=== PATIENT | male | born 1960 | race American Indian/Alaskan Native ===

== ENCOUNTER 2021-04-02 18:24 | Inpatient (IN) | payer OTHER ==
[2021-04-02] MEDS ORDERED: SODIUM CHLORIDE 0.9% 1000 ML 1,000 ML IV ONE (19:29)
[2021-04-02] MEDS ORDERED: dilTIAZem 25 MG/5 ML INJ IV ONE (19:29)
[2021-04-02] MEDS ORDERED: ASPIRIN 81 MG TAB CHEW PO ONE (19:29)
--- NOTE | 2021-04-02 19:52 | XRay Report ---
CHEST 1 VIEW 04/02/2021 6:45 PM INDICATION / CLINICAL INFORMATION: dyspnea. COMPARISON: None available. FINDINGS: SUPPORT DEVICES: None. HEART / MEDIASTINUM: No significant abnormality. LUNGS / PLEURA: No significant pulmonary or pleural abnormality. No pneumothorax. ADDITIONAL FINDINGS: No significant additional findings. IMPRESSION: 1. No acute findings. Signer Name: Sloan Stone MD Signed: 04/02/2021 7:48 PM Workstation Name: [id number]
[2021-04-02 20:01] LABS: Basophils % (Auto) 0.8 % (0.0-1.8); Eosinophils # (Auto) 0.1 K/mm3 (0.0-0.4); Eosinophils % (Auto) 1.4 % (0.0-4.3); Hematocrit 46.3 % (35.5-45.6); Hemoglobin 15.8 gm/dl (11.8-15.2); Lymphocytes # (Auto) 1.5 K/mm3 (1.2-5.4); Mean Corpuscular HGB Conc 34 % (32-34); Mean Corpuscular Volume 95 fl (84-94); Monocytes # (Auto) 0.6 K/mm3 (0.0-0.8); Monocytes % (Auto) 10.8 % (0.0-7.3); Platelet Count 253 K/mm3 (140-440); Red Blood Count 4.88 M/mm3 (3.65-5.03); Red Cell Distribution Width 14.7 % (13.2-15.2)
--- NOTE | 2021-04-02 20:05 | Emergency Department Report ---
ED Palpitations HPI - General Chief Complaint: Arrhythmia/Palpitations Stated Complaint: HEART FLUTTER Time Seen by Provider: 04/02/21 19:23 Source: patient Mode of arrival: Ambulatory Limitations: No Limitations - History of Present Illness Initial Comments: Patient is a 61-year-old F [place]inamese male with a past medical history hypertension who is presenting with palpitations. Patient states for approximately a week he has been having off and on heart palpitations or shortness of breath. States he initially thought that he was having a cold as he had a mild cough shortness of breath with exertion and when he lies flat. Patient travel to [place] during the week for his birthday and was continued to having symptoms so he went to the hospital and was told that he had atrial flutter. Patient was told that they wanted to admit him to the hospital however he elected to come back home to [place] and be evaluated here. Patient was placed on diltiazem 125 mg. Took 3 doses total the last of which was this morning. Patient is states this afternoon is continued to have fluttering in the chest. States no chest heaviness at this time. - Related Data Previous Rx's Medication Instructions Recorded Last Taken Type Ibuprofen [Motrin] 800 mg PO Q8HR PRN #20 tablet 06/21/16 Unknown Rx Allergies Allergy/AdvReac Type Severity Reaction Status Date / Time No Known Allergies Allergy Verified 04/02/21 18:26 ED Review of Systems ROS: Stated complaint: HEART FLUTTER Other details as noted in HPI Comment: All other systems reviewed and negative ED Past Medical Hx - Past Medical History Hx Hypertension: Yes (no meds) Additional medical history: A TRIAL FIB - Surgical History Past Surgical History?: No - Social History Smoking Status: Current Some Day Smoker Substance Use Type: Alcohol - Medications Home Medications: Home Medications Medication Instructions Recorded Confirmed Last Taken Type Ibuprofen [Motrin] 800 mg PO Q8HR PRN #20 tablet 06/21/16 Unknown Rx ED Physical Exam - General Limitations: No Limitations General appearance: alert, in no apparent distress - Head Head exam: Present: atraumatic, normocephalic - Eye Eye exam: Present: normal appearance, PERRL, EOMI - ENT ENT exam: Present: mucous membranes moist - Neck Neck exam: Present: normal inspection - Respiratory Respiratory exam: Present: normal lung sounds bilaterally. Absent: respiratory distress, wheezes, rales, rhonchi - Cardiovascular Cardiovascular Exam: Present: tachycardia, irregular rhythm. Absent: systolic murmur, diastolic murmur, rubs, gallop - GI/Abdominal GI/Abdominal exam: Present: soft, normal bowel sounds. Absent: distended, tenderness, guarding, rebound - Rectal Rectal exam: Present: deferred - Extremities Exam Extremities exam: Present: normal inspection, pedal edema - Back Exam Back exam: Present: normal inspection - Neurological Exam Neurological exam: Present: alert, oriented X3 - Psychiatric Psychiatric exam: Present: normal affect, normal mood - Skin Skin exam: Present: warm, dry, intact, normal color. Absent: rash ED Course Vital Signs 04/02/21 04/02/21 18:31 19:45 Temperature 98.4 F Pulse Rate 162 H Respiratory 20 18 Rate Blood Pressure 151/113 O2 Sat by Pulse 95 Oximetry ED Medical Decision Making - Lab Data Result diagrams: 04/02/21 19:44 04/02/21 19:44 Lab Results 04/02/21 04/02/21 04/02/21 Range/Units 19:44 19:44 19:44 WBC 5.2 (4.5-11.0) K/mm3 RBC 4.88 (3.65-5.03) M/mm3 Hgb 15.8 H (11.8-15.2) gm/dl Hct 46.3 H (35.5-45.6) % MCV 95 H (84-94) fl MCH 32 (28-32) pg MCHC 34 (32-34) % RDW 14.7 (13.2-15.2) % Plt Count 253 (140-440) K/mm3 Lymph % (Auto) 29.0 (13.4-35.0) % [place] % (Auto) 10.8 H (0.0-7.3) % Eos % (Auto) 1.4 (0.0-4.3) % Baso % (Auto) 0.8 (0.0-1.8) % Lymph # (Auto) 1.5 (1.2-5.4) K/mm3 [place] # (Auto) 0.6 (0.0-0.8) K/mm3 Eos # (Auto) 0.1 (0.0-0.4) K/mm3 Baso # (Auto) 0.0 (0.0-0.1) K/mm3 Seg Neutrophils % 58.0 (40.0-70.0) % Seg Neutrophils # 3.0 (1.8-7.7) K/mm3 APTT 25.2 (24.2-36.6) Sec. D-Dimer 380.81 H (0-234) ng/mlDDU Sodium 141 (137-145) mmol/L Potassium 4.1 (3.6-5.0) mmol/L Chloride 104.6 (98-107) mmol/L Carbon Dioxide 21 L (22-30) mmol/L Anion Gap 20 mmol/L BUN 21 H (9-20) mg/dL Creatinine 0.9 (0.8-1.3) mg/dL Estimated GFR > 60 ml/min BUN/Creatinine Ratio 23 % Glucose 87 (75-100) mg/dL Calcium 9.8 (8.4-10.2) mg/dL Magnesium 1.90 (1.7-2.3) mg/dL Troponin T 0.066 H (0.00-0.029) ng/mL NT-Pro-B Natriuret Pep (0-900) pg/mL Triglycerides 143 (2-149) mg/dL Cholesterol 221 H (50-199) mg/dL LDL Cholesterol Direct 136 H (50-130) mg/dL HDL Cholesterol 65 H (40-59) mg/dL Cholesterol/HDL Ratio 3.40 % TSH (0.270-4.200) mlU/mL 04/02/21 04/02/21 Range/Units 19:44 19:44 WBC (4.5-11.0) K/mm3 RBC (3.65-5.03) M/mm3 Hgb (11.8-15.2) gm/dl Hct (35.5-45.6) % MCV (84-94) fl MCH (28-32) pg MCHC (32-34) % RDW (13.2-15.2) % Plt Count (140-440) K/mm3 Lymph % (Auto) (13.4-35.0) % Miller % (Auto) (0.0-7.3) % Eos % (Auto) (0.0-4.3) % Baso % (Auto) (0.0-1.8) % Lymph # (Auto) (1.2-5.4) K/mm3 Miller # (Auto) (0.0-0.8) K/mm3 Eos # (Auto) (0.0-0.4) K/mm3 Baso # (Auto) (0.0-0.1) K/mm3 Seg Neutrophils % (40.0-70.0) % Seg Neutrophils # (1.8-7.7) K/mm3 APTT (24.2-36.6) Sec. D-Dimer (0-234) ng/mlDDU Sodium (137-145) mmol/L Potassium (3.6-5.0) mmol/L Chloride (98-107) mmol/L Carbon Dioxide (22-30) mmol/L Anion Gap mmol/L BUN (9-20) mg/dL Creatinine (0.8-1.3) mg/dL Estimated GFR ml/min BUN/Creatinine Ratio % Glucose (75-100) mg/dL Calcium (8.4-10.2) mg/dL Magnesium (1.7-2.3) mg/dL Troponin T (0.00-0.029) ng/mL NT-Pro-B Natriuret Pep 175.7 (0-900) pg/mL Triglycerides (2-149) mg/dL Cholesterol (50-199) mg/dL LDL Cholesterol Direct (50-130) mg/dL HDL Cholesterol (40-59) mg/dL Cholesterol/HDL Ratio % TSH 2.310 (0.270-4.200) mlU/mL - EKG Data -: EKG Interpreted by Me - EKG Data 04/02/21 21:49 EKG shows atrial flutter with a rate of 103. LVH present. Possible ST elevation in lead III secondary to his rate. Intervals show a prolonged QT. [place] is normal the flutter pattern is variable and the rate is irregularly irregular - Radiology Data [facility] [address] [place] [address] XRay Report Signed Patient: SAM REDMAN MR#: [id number] : 1960 Acct:[id number] Age/Sex: 61 / M ADM Date: 04/02/21 Loc: ED Attending Dr: Ordering Physician: CANDIDO JOHNSON MD Date of Service: 04/02/21 Procedure(s): XR chest 1V ap Accession Number(s): [id number] cc: CANDIDO JOHNSON MD Fluoro Time In Minutes: CHEST 1 VIEW 04/02/2021 6:45 PM INDICATION / CLINICAL INFORMATION: dyspnea. COMPARISON: None available. FINDINGS: SUPPORT DEVICES: None. HEART / MEDIASTINUM: No significant abnormality. LUNGS / PLEURA: No significant pulmonary or pleural abnormality. No pneumothorax. ADDITIONAL FINDINGS: No significant additional findings. IMPRESSION: 1. No acute findings. Signer Name: Sloan Stone MD Signed: 04/02/2021 7:48 PM Workstation Name: [employer] CTA CHEST WITH IV CONTRAST INDICATION: elevated ddimer, sob, 100ml of OMNI 350 given. TECHNIQUE: Axial CT images were obtained through the chest after injection of 100 cc IV contrast. 3 plane MIP reconstructions were produced. All CT scans at this location are performed using CT dose reduction for ALARA by means of automated exposure control. COMPARISON: None available. FINDINGS: PULMONARY ARTERIES: No pulmonary emboli. THORACIC AORTA: No acute abnormality. HEART: Moderate cardiomegaly. CORONARY ARTERIES: No significant calcification. PLEURA: No pleural effusion. No pneumothorax. LYMPH NODES: No significant adenopathy. LUNGS: Moderate interstitial and dependent pulmonary edema ADDITIONAL FINDINGS: None. UPPER ABDOMEN: No acute findings. SKELETAL STRUCTURES: No significant osseous abnormality. IMPRESSION: 1. No CT evidence for pulmonary embolism. 2. Congestive heart failure. Signer Name: Sloan Stone MD Signed: 04/02/2021 9:25 PM Workstation Name: [email or web address] - Medical Decision Making Patient is a 61-year-old F [place] male who states he is been feeling poorly for approximately a week. Initially thought he had a cold as he states this time a year he often times does get a very minor cold-like illness. Patient was noted to be in atrial flutter several days ago and started on diltiazem but patient did not want to be admitted at that time since he was out of town. Patient was given 20 of diltiazem on arrival. Heart rate was in the 140s to 160 range during my interaction with the patient. Patient's rate decreased into the 70s and is remained under 100 since being given the diltiazem. Chest x-ray does shows pulmonary vascular congestion per my interpretation. D-dimer slightly elevated and with his recent travel elected to do a CTA of the chest to rule out pulmonary embolus as a possible cause of the patient is going into atrial flutter. No PE was found but the patient does show evidence of some pulmonary vascular congestion and edema. Patient given a dose of Lasix. Patient first troponin is slightly elevated. Patient to be admitted to the [facility] ital[facility] service with cardiology consult. Critical Care Time: Yes (30) Critical care attestation.: If time is entered above; I have spent that time in minutes in the direct care of this critically ill patient, excluding procedure time. ED Disposition Clinical Impression: Atrial fibrillation/flutter, Elevated troponin I level, Pulmonary edema Disposition: OP ADMIT IP TO THIS HOSP Is pt being admited?: Yes Does the pt Need Aspirin: No Condition: Stable Instructions: Pulmonary Edema (ED) Time of Disposition: 21:53
[2021-04-02 20:11] LABS: Partial Thromboplastin Time 25.2 Sec. (24.2-36.6)
[2021-04-02 20:16] LABS: BUN/Creatinine Ratio 23; Blood Urea Nitrogen 21 mg/dL (9-20); Calcium 9.8 mg/dL (8.4-10.2); Hemolysis Index 24
[2021-04-02 20:41] LABS: HDL Cholesterol 65 mg/dL (40-59); LDL Cholesterol,Direct 136 mg/dL (50-130)
--- NOTE | 2021-04-02 21:30 | Cat Scan Report ---
CTA CHEST WITH IV CONTRAST INDICATION: elevated ddimer, sob, 100ml of OMNI 350 given. TECHNIQUE: Axial CT images were obtained through the chest after injection of 100 cc IV contrast. 3 plane MIP re constructions were produced. All CT scans at this location are performed using CT dose reduction for ALARA by means of automated exposure control. COMPARISON: None available. FINDINGS: PULMONARY ARTERIES: No pulmonary emboli. THORACIC AORTA: No acute abnormality. HEART: Moderate cardiomegaly. CORONARY ARTERIES: No significant calcification. PLEURA: No pleural effusion. No pneumothorax. LYMPH NODES: No significant adenopathy. LUNGS: Moderate interstitial and dependent pulmonary edema ADDITIONAL FINDINGS: None. UPPER ABDOMEN: No acute findings. SKELETAL STRUCTURES: No significant osseous abnormality. IMPRESSION: 1. No CT evidence for pulmonary embolism. 2. Congestive heart failure. Signer Name: Sloan Stone MD Signed: 04/02/2021 9:25 PM Workstation Name: [id number]
[2021-04-02] MEDS ORDERED: FUROSEMIDE 40 MG/4 ML INJ IV ONE (21:35)
[2021-04-02] MEDS ORDERED: MORPHINE 4 MG/1 ML INJ IV PRN (22:17)
[2021-04-02] MEDS ORDERED: MAGNESIUM HYDROXIDE (MOM) ORAL LIQD UDC PO PRN (22:17)
[2021-04-02] MEDS ORDERED: ACETAMINOPHEN 325 MG TAB PO PRN (22:17)
[2021-04-02] MEDS ORDERED: MORPHINE 2 MG/1 ML INJ IV PRN (22:17)
[2021-04-02] MEDS ORDERED: traMADol 50 MG TAB PO PRN (22:17)
[2021-04-02] MEDS ORDERED: ONDANSETRON 4 MG/2 ML INJ IV PRN (22:17)
[2021-04-02] MEDS ORDERED: NITROGLYCERIN 0.4 MG TAB SUBL SL PRN ×2 (22:17)
--- NOTE | 2021-04-02 22:39 | History and Physical Report ---
History of Present Illness Date of examination: 04/02/21 Date of admission: 04/02/21 22:03 Chief complaint: Shortness of Breath Palpitation History of present illness: 61-year-old -[place] male with significant past medical history of hypertension presents to the emergency room today complaining of palpitation and shortness of breath which has been ongoing for the past few days. Patient initially had a mild cough and some shortness of breath especially when he lies down flat. He had a recent travel to [place] for his birthday during the week where his sy mptoms continued. He was seen at the hospital in [place] was diagnosed with atrial fibrillation/atrial flutter. He declined admission at that time and opted to return to [place] to be evaluated. He was placed on diltiazem 125 mg which he has been compliant with. However this afternoon patient continued to have palpitations and shortness of breath and decided to check into the emergency room. He denies any chest pain, no headache or dizziness, no diaphoresis, no nausea vomiting and no abdominal pain. Upon arrival in the emergency room patient was found to be in atrial flutterA. fib with a rate of 140 and was given 20 mg of diltiazem with significant rate control. Work-up in the emergency room today, chest x-ray shows no acute findings however CT angiogram showed no evidence of pulmonary embolism but has findings consistent with congestive heart failure. Labs were significant for slightly elevated troponin 0 0.066 then 0.071, elevated D-dimer of 380.8. Lipid profile were also abnormally elevated. Patient is being admitted for new onset A. fib, congestive heart failure and elevated troponin. Past History Past Medical History: atrial fib, hypertension Past Surgical History: No surgical history Social history: smoking (Current daily smoker) Family history: no significant family history Medications and Allergies Allergies Allergy/AdvReac Type Severity Reaction Status Date / Time No Known Allergies Allergy Verified 04/02/21 18:26 Home Medications Medication Instructions Recorded Confirmed Last Taken Type Ibuprofen [Motrin] 800 mg PO Q8HR PRN #20 tablet 06/21/16 Unknown Rx Active Meds: Active Medications Acetaminophen (Acetaminophen 325 Mg Tab) 650 mg PO Q6H PRN PRN Reason: Pain, Mild (1-3) Aspirin (Aspirin Ec 325 Mg Tab) 325 mg PO QDAY NANO Atorvastatin Calcium (Atorvastatin 40 Mg Tab) 40 mg PO QHS NANO Furosemide (Furosemide 40 Mg/4 Ml Inj) 40 mg IV BID@0600,1800 [facility] Magnesium Hydroxide (Magnesium Hydroxide (Mom) Oral Liqd Udc) 30 ml PO Q4H PRN PRN Reason: Constipation Morphine Sulfate (Morphine 2 Mg/1 Ml Inj) 2 mg IV Q5MIN PRN PRN Reason: Chest Pain unrelieved by NTG Morphine Sulfate (Morphine 4 Mg/1 Ml Inj) 2 mg IV Q5MIN PRN PRN Reason: Chest Pain Nitroglycerin (Nitroglycerin 0.4 Mg Tab Subl) 0.4 mg SL .Q5MIN PRN PRN Reason: Chest Pain Nitroglycerin (Nitroglycerin 0.4 Mg Tab Subl) 0.4 mg SL Q5M PRN PRN Reason: Chest Pain Ondansetron HCl (Ondansetron 4 Mg/2 Ml Inj) 4 mg IV Q8H PRN PRN Reason: Nausea And Vomiting Sodium Chloride (Sodium Chloride 0.9% 10 Ml Flush Syringe) 10 ml IV BID NANO Sodium Chloride (Sodium Chloride 0.9% 10 Ml Flush Syringe) 10 ml IV PRN PRN PRN Reason: LINE FLUSH Sodium Chloride (Sodium Chloride 0.9% 10 Ml Flush Syringe) 10 ml IV PRN PRN PRN Reason: LINE FLUSH Tramadol HCl (Tramadol 50 Mg Tab) 50 mg PO Q6H PRN PRN Reason: Pain, Moderate (4-6) Review of Systems Constitutional: no fever, no chills Cardiovascular: palpitations, no chest pain, no syncope Respiratory: shortness of breath Gastrointestinal: no abdominal pain, no nausea, no vomiting, no diarrhea Genitourinary Male: no dysuria, no hematuria, no flank pain, no nocturia Musculoskeletal: no neck pain, no low back pain Integumentary: no rash, no pruritis Neurological: no syncope, no headaches, no confusion Psychiatric: no anxiety, no depression Endocrine: no polyphagia, no polydipsia, no polyuria, no nocturia Exam - Constitutional Vitals: Temp Pulse Resp BP Pulse Ox 98.4 F 69 16 141/80 97 04/02/21 18:31 04/02/21 22:00 04/02/21 20:30 04/02/21 22:00 04/02/21 22:00 General appearance: Present: no acute distress, well-nourished - EENT Eyes: Present: PERRL, EOM intact ENT: hearing intact - Neck Neck: Present: supple, normal ROM - Respiratory Respiratory effort: normal Respiratory: bilateral: CTA - Cardiovascular Rhythm: irregularly irregular Heart Sounds: Present: S1 & S2. Absent: gallop, systolic murmur, diastolic murmur, rub, click - Extremities Extremities: no ischemia, pulses intact, pulses symmetrical, normal temperature, normal color, Full ROM Extremity abnormal: edema (Trace bilateral ankle edema) Peripheral Pulses: within normal limits - Abdominal General gastrointestinal: Present: soft, non-tender, non-distended, normal bowel sounds. Absent: mass - Integumentary Integumentary: Present: clear, warm, dry, normal turgor. Absent: rash - Musculoskeletal Musculoskeletal: strength equal bilaterally - Psychiatric Psychiatric: appropriate mood/affect, intact judgment & insight, memory intact, cooperative - Neurologic Neurologic: CNII-XII intact, no focal deficits, moves all extremities HEART Score - HEART Score Troponin: Troponin T 0.071 ng/mL (0.00-0.029) H 04/02/21 21:40 Results - Labs CBC & Chem 7: 04/02/21 19:44 04/02/21 19:44 Labs: Abnormal lab results 04/02/21 04/02/21 04/02/21 Range/Units 19:44 19:44 19:44 Hgb 15.8 H (11.8-15.2) gm/dl Hct 46.3 H (35.5-45.6) % MCV 95 H (84-94) fl [place] % (Auto) 10.8 H (0.0-7.3) % D-Dimer 380.81 H (0-234) ng/mlDDU Carbon Dioxide 21 L (22-30) mmol/L BUN 21 H (9-20) mg/dL Troponin T 0.066 H (0.00-0.029) ng/mL Cholesterol 221 H (50-199) mg/dL LDL Cholesterol Direct 136 H (50-130) mg/dL HDL Cholesterol 65 H (40-59) mg/dL 04/02/21 Range/Units 21:40 Hgb (11.8-15.2) gm/dl Hct (35.5-45.6) % MCV (84-94) fl [place] % (Auto) (0.0-7.3) % D-Dimer (0-234) ng/mlDDU Carbon Dioxide (22-30) mmol/L BUN (9-20) mg/dL Troponin T 0.071 H (0.00-0.029) ng/mL Cholesterol (50-199) mg/dL LDL Cholesterol Direct (50-130) mg/dL HDL Cholesterol (40-59) mg/dL Assessment and Plan - Patient Problems (1) Atrial fibrillation/flutter Current Visit: Yes Status: Acute Plan to address problem: Patient admitted and placed on telemetry. Rate is currently controlled. He had a dose of IV diltiazem in the emergency room with good response. Meanwhile we will schedule for echocardiogram and request cardiology evaluation. TSH has been within normal limits. (2) Elevated troponin I level Current Visit: Yes Status: Acute Plan to address problem: Patient had denied any chest pain. Possibly related to the new onset A. fib. We will place patient on anticoagulation and await further recommendations from cardiology. (3) Pulmonary edema Current Visit: Yes Status: Acute Plan to address problem: New onset CHF. Will place on diuretics. We will monitor inputs and outputs and also monitor daily weight. We will request echocardiogram. (4) DVT prophylaxis Current Visit: Yes Status: Acute Plan to address problem: Patient currently on anticoagulation. (5) Full code status Current Visit: Yes Status: Acute Plan to address problem: Patient is a full code.
[2021-04-02] MEDS ORDERED: HEPARIN 10,000 UNITS/10 ML VIAL IV ONE (23:24)
[2021-04-02] MEDS ORDERED: HEPARIN 10,000 UNITS/10 ML VIAL IV PRN (23:24)
[2021-04-02] MEDS ORDERED: HEPARIN/ 0.45% NACL DRIP 25,000 UNIT/500 ML BAG IV SCH (23:45)
[2021-04-03 01:17] LABS: BUN/Creatinine Ratio 21; Blood Urea Nitrogen 19 mg/dL (9-20); Calcium 9.2 mg/dL (8.4-10.2); Hemolysis Index 5
[2021-04-03 01:24] LABS: Partial Thromboplastin Time 169.8 Sec. (24.2-36.6)
[2021-04-03 01:28] LABS: Hematocrit 44.5 % (35.5-45.6); Red Blood Count 4.71 M/mm3 (3.65-5.03)
[2021-04-03 01:29] LABS: Basophils % (Auto) 0.8 % (0.0-1.8); Eosinophils # (Auto) 0.1 K/mm3 (0.0-0.4); Eosinophils % (Auto) 2.4 % (0.0-4.3); Lymphocytes # (Auto) 1.6 K/mm3 (1.2-5.4); Lymphocytes % (Auto) 33.6 % (13.4-35.0); Mean Corpuscular HGB Conc 34 % (32-34); Mean Corpuscular Volume 96 fl (84-94); Monocytes # (Auto) 0.4 K/mm3 (0.0-0.8); Monocytes % (Auto) 8.8 % (0.0-7.3); Platelet Count 251 K/mm3 (140-440); Red Cell Distribution Width 14.8 % (13.2-15.2)
[2021-04-03] MEDS ORDERED: FUROSEMIDE 40 MG/4 ML INJ IV SCH (06:00)
[2021-04-03] MEDS ORDERED: REGADENOSON 0.4 MG/5 ML INJ IV ONE (06:49)
[2021-04-03 09:42] LABS: INR 0.9 (0.87-1.13)
[2021-04-03 09:54] LABS: BUN/Creatinine Ratio 18; Blood Urea Nitrogen 16 mg/dL (9-20); Calcium 9.8 mg/dL (8.4-10.2); Hemolysis Index 2
--- NOTE | 2021-04-03 09:57 | Progress Note ---
Assessment and Plan Assessment and plan: 61-year-old -Polish male with significant past medical history of hypertension presents to the emergency room today complaining of palpitation and shortness of breath which has been ongoing for the past few days. The patient was admitted with diagnosis of new onset atrial fibrillation, heart failure exacerbated and elevated troponin. Upon arrival in the emergency room patient was found to be in atrial flutterA. fib with a rate of 140 and was given 20 mg of diltiazem with significant rate control. Work-up in the emergency room today, chest x-ray shows no acute findings however CT angiogram showed no evidence of pulmonary embolism but has findings consistent with congestive heart failure. Labs were significant for slightly elevated troponin 0 0.066 then 0.071, elevated D-dimer of 380.8. Lipid profile were also abnormally elevated. New onset atrial fibrillation. Elevated troponin Pulmonary edema History of gout Chronic back pain Elevated D-dimer. CTA negative 04/03/2021. Follow-up echocardiogram and cardiology consultation. Etiology of pulmonary edema may be related to atrial fibrillation. Ischemic evaluation with stress test per cardiology. Continue to monitor cardiac isoenzymes and follow- up serial EKG. TSH within normal limits and CTA negative for PE. History Interval history: No new issues overnight. No chest pain or shortness of breath. Hospitalist Physical - Constitutional Vitals: Temp Pulse Resp BP Pulse Ox 98.6 F 77 20 127/97 94 04/03/21 08:20 04/03/21 08:20 04/03/21 08:20 04/03/21 08:20 04/03/21 08:20 General appearance: Present: no acute distress, well-nourished - EENT Eyes: Present: PERRL, EOM intact ENT: hearing intact, clear oral mucosa, dentition normal - Neck Neck: Present: supple, normal ROM - Respiratory Respiratory effort: normal Respiratory: bilateral: CTA - Cardiovascular Rhythm: regular Heart Sounds: Present: S1 & S2. Absent: gallop, rub - Extremities Extremities: no ischemia, No edema, Full ROM - Abdominal General gastrointestinal: soft, non-tender, non-distended, normal bowel sounds - Integumentary Integumentary: Present: clear, warm, dry - Neurologic Neurologic: CNII-XII intact, moves all extremities HEART Score - HEART Score Troponin: Troponin T 0.071 ng/mL (0.00-0.029) H 04/02/21 21:40 Results - Labs CBC & Chem 7: 04/03/21 00:51 04/03/21 08:24 Labs: Laboratory Last Values WBC 4.9 K/mm3 (4.5-11.0) 04/03/21 00:51 RBC 4.71 M/mm3 (3.65-5.03) 04/03/21 00:51 Hgb 15.0 gm/dl (11.8-15.2) 04/03/21 00:51 Hct 44.5 % (35.5-45.6) 04/03/21 00:51 MCV 96 fl (84-94) H 04/03/21 00:51 MCH 32 pg (28-32) 04/03/21 00:51 MCHC 34 % (32-34) 04/03/21 00:51 RDW 14.8 % (13.2-15.2) 04/03/21 00:51 Plt Count 251 K/mm3 (140-440) 04/03/21 00:51 Lymph % (Auto) 33.6 % (13.4-35.0) 04/03/21 00:51 [place] % (Auto) 8.8 % (0.0-7.3) H 04/03/21 00:51 Eos % (Auto) 2.4 % (0.0-4.3) 04/03/21 00:51 Baso % (Auto) 0.8 % (0.0-1.8) 04/03/21 00:51 Lymph # (Auto) 1.6 K/mm3 (1.2-5.4) 04/03/21 00:51 [place] # (Auto) 0.4 K/mm3 (0.0-0.8) 04/03/21 00:51 Eos # (Auto) 0.1 K/mm3 (0.0-0.4) 04/03/21 00:51 Baso # (Auto) 0.0 K/mm3 (0.0-0.1) 04/03/21 00:51 Seg Neutrophils % 54.4 % (40.0-70.0) 04/03/21 00:51 Seg Neutrophils # 2.7 K/mm3 (1.8-7.7) 04/03/21 00:51 PT 12.7 Sec. (12.2-14.9) 04/03/21 08:24 INR 0.90 (0.87-1.13) 04/03/21 08:24 APTT 169.8 Sec. (24.2-36.6) H* 04/03/21 00:51 D-Dimer 380.81 ng/mlDDU (0-234) H 04/02/21 19:44 Heparin Anti-Xa Level 0.17 U.I./ml (0.3-0.7) L 04/03/21 08:24 Sodium 138 mmol/L (137-145) 04/03/21 00:51 Potassium 3.7 mmol/L (3.6-5.0) 04/03/21 00:51 Chloride 103.2 mmol/L (98-107) 04/03/21 00:51 Carbon Dioxide 23 mmol/L (22-30) 04/03/21 00:51 Anion Gap 16 mmol/L 04/03/21 00:51 BUN 19 mg/dL (9-20) 04/03/21 00:51 Creatinine 0.9 mg/dL (0.8-1.3) 04/03/21 00:51 Estimated GFR > 60 ml/min 04/03/21 00:51 BUN/Creatinine Ratio 21 % 04/03/21 00:51 Glucose 117 mg/dL (75-100) H 04/03/21 00:51 Calcium 9.2 mg/dL (8.4-10.2) 04/03/21 00:51 Magnesium 1.90 mg/dL (1.7-2.3) 04/02/21 19:44 Troponin T 0.071 ng/mL (0.00-0.029) H 04/02/21 21:40 NT-Pro-B Natriuret Pep 175.7 pg/mL (0-900) 04/02/21 19:44 Triglycerides 143 mg/dL (2-149) 04/02/21 19:44 Cholesterol 221 mg/dL (50-199) H 04/02/21 19:44 LDL Cholesterol Direct 136 mg/dL (50-130) H 04/02/21 19:44 HDL Cholesterol 65 mg/dL (40-59) H 04/02/21 19:44 Cholesterol/HDL Ratio 3.40 % 04/02/21 19:44 TSH 2.310 mlU/mL (0.270-4.200) 04/02/21 19:44 Thomas/IV: Voiding Method Urinal Active Medications - Current Medications Current Medications: Generic Name Dose Route Start Last Admin Trade Name Freq PRN Reason Stop Dose Admin Acetaminophen 650 mg 04/02/21 22:17 Acetaminophen 325 Mg Tab PO Q6H PRN Pain, Mild (1-3) Aspirin 325 mg 04/03/21 10:00 Aspirin Ec 325 Mg Tab PO QDAY [facility] Atorvastatin Calcium 40 mg 04/03/21 22:00 Atorvastatin 40 Mg Tab PO QHS [facility] Furosemide 40 mg 04/03/21 06:00 04/03/21 06:07 Furosemide 40 Mg/4 Ml Inj IV 40 mg BID@0600,1800 [facility] Administration Heparin Sodium (Porcine) 4,400 unit 04/02/21 23:24 Heparin 10,000 Units/10 Ml Vial 40 unit/kg (4400 unit) IV Q6H PRN Anti-Xa Assay < 0.1 units/ml Heparin Sodium/Sodium Chloride 25,000 unit in 500 mls @ 20 mls/hr 04/02/21 23:45 04/03/21 00:25 Heparin/ 0.45% Nacl-25,000 Unit/500 Ml IV 1,000 units/hr TITRATE NANO 20 mls/hr Administration Protocol 1,000 UNITS/HR Magnesium Hydroxide 30 ml 04/02/21 22:17 Magnesium Hydroxide (Mom) Oral Liqd Udc PO Q4H PRN Constipation Morphine Sulfate 2 mg 04/02/21 22:17 Morphine 2 Mg/1 Ml Inj IV Q5MIN PRN Chest Pain unrelieved by NTG Nitroglycerin 0.4 mg 04/02/21 22:17 Nitroglycerin 0.4 Mg Tab Subl SL .Q5MIN PRN Chest Pain Ondansetron HCl 4 mg 04/02/21 22:17 Ondansetron 4 Mg/2 Ml Inj IV Q8H PRN Nausea And Vomiting Sodium Chloride 10 ml 04/03/21 10:00 Sodium Chloride 0.9% 10 Ml Flush Syringe IV BID NANO Sodium Chloride 10 ml 04/02/21 22:17 Sodium Chloride 0.9% 10 Ml Flush Syringe IV PRN PRN LINE FLUSH Tramadol HCl 50 mg 04/02/21 22:17 Tramadol 50 Mg Tab PO Q6H PRN Pain, Moderate (4-6)
[2021-04-03] MEDS ORDERED: ASPIRIN EC 325 MG TAB PO SCH (10:00)
[2021-04-03 10:15] LABS: Hematocrit 47.5 % (35.5-45.6); Hemoglobin 16.1 gm/dl (11.8-15.2); Mean Corpuscular HGB Conc 34 % (32-34); Mean Corpuscular Volume 94 fl (84-94); Platelet Count 251 K/mm3 (140-440); Red Blood Count 5.05 M/mm3 (3.65-5.03); Red Cell Distribution Width 14.5 % (13.2-15.2)
--- NOTE | 2021-04-03 12:06 | Consultation ---
History of Present Illness Consult date: 04/03/21 Consult reason: atrial fibrillation History of present illness: This is a 61-year old male who presents with complaints of palpitations. Patient reports intermittent palpitations for several weeks associated with shortness of breath. Patient traveled to [place] several days ago where he continued to having palpitations. He went to the emergency department and was told that he had atrial fibrillation. He was recommended hospitalization but the patient declined. He elected to travel back home to [place] for evaluation. On discharge, he was given a prescription for Diltiazem and aspirin. An ECG done today shows atrial flutter with 4:1 AV conduction. Rate 78. Chest x- ray is negative. No evidence of pulmonary embolism by CTA scan of the chest. Labs shows a normal serum magnesium and normal TSH at 2.3. Patient gives a history of hypertension but is not taking any medications and does not have a PCP. No prior cardiac workup. Past History Past Medical History: atrial fib, hypertension Past Surgical History: No surgical history Social history: smoking (Current daily smoker) Family history: no significant family history Medications and Allergies Allergies Allergy/AdvReac Type Severity Reaction Status Date / Time No Known Allergies Allergy Verified 04/02/21 18:26 Home Medications Medication Instructions Recorded Confirmed Last Taken Type Ibuprofen [Motrin] 800 mg PO Q8HR PRN #20 tablet 06/21/16 Unknown Rx Active Meds: Active Medications Acetaminophen (Acetaminophen 325 Mg Tab) 650 mg PO Q6H PRN PRN Reason: Pain, Mild (1-3) Aspirin (Aspirin Ec 325 Mg Tab) 325 mg PO QDAY NANO Atorvastatin Calcium (Atorvastatin 40 Mg Tab) 40 mg PO QHS [facility] Furosemide (Furosemide 40 Mg/4 Ml Inj) 40 mg IV BID@0600,1800 [facility] Last Admin: 04/03/21 06:07 Dose: 40 mg Documented by: Heparin Sodium (Porcine) (Heparin 10,000 Units/10 Ml Vial) 4,400 unit 40 unit/kg (4400 unit) IV Q6H PRN PRN Reason: Anti-Xa Assay < 0.1 units/ml Heparin Sodium/Sodium Chloride (Heparin/ 0.45% Nacl-25,000 Unit/500 Ml) 25,000 unit in 500 mls @ 20 mls/hr IV TITRATE NANO; Protocol Last Admin: 04/03/21 00:25 Dose: 1,000 units/hr, 20 mls/hr Documented by: Magnesium Hydroxide (Magnesium Hydroxide (Mom) Oral Liqd Udc) 30 ml PO Q4H PRN PRN Reason: Constipation Morphine Sulfate (Morphine 2 Mg/1 Ml Inj) 2 mg IV Q5MIN PRN PRN Reason: Chest Pain unrelieved by NTG Nitroglycerin (Nitroglycerin 0.4 Mg Tab Subl) 0.4 mg SL .Q5MIN PRN PRN Reason: Chest Pain Ondansetron HCl (Ondansetron 4 Mg/2 Ml Inj) 4 mg IV Q8H PRN PRN Reason: Nausea And Vomiting Sodium Chloride (Sodium Chloride 0.9% 10 Ml Flush Syringe) 10 ml IV BID NANO Sodium Chloride (Sodium Chloride 0.9% 10 Ml Flush Syringe) 10 ml IV PRN PRN PRN Reason: LINE FLUSH Tramadol HCl (Tramadol 50 Mg Tab) 50 mg PO Q6H PRN PRN Reason: Pain, Moderate (4-6) Review of Systems Cardiovascular: palpitations, shortness of breath (intermittent), no chest pain, no edema, no syncope, no lightheadedness Physical Examination Vital Signs Temp Pulse Resp BP Pulse Ox 98.4 F 162 H 20 151/113 95 04/02/21 18:31 04/02/21 18:31 04/02/21 18:31 04/02/21 18:31 04/02/21 18:31 General appearance: no acute distress HEENT: Positive: PERRL Neck: Positive: trachea midline Cardiac: Positive: irregularly irregular Lungs: Positive: Normal Breath Sounds Neuro: Positive: Grossly Intact Extremities: Absent: edema Results 04/03/21 08:24 04/03/21 08:24 Coagulation 04/02/21 04/03/21 04/03/21 Range/Units 19:44 00:51 08:24 PT 13.8 12.7 (12.2-14.9) Sec. INR 1.00 0.90 (0.87-1.13) APTT 25.2 169.8 H* (24.2-36.6) Sec. Lipids 04/02/21 Range/Units 19:44 Triglycerides 143 (2-149) mg/dL Cholesterol 221 H (50-199) mg/dL HDL Cholesterol 65 H (40-59) mg/dL Cholesterol/HDL Ratio 3.40 % CBC 04/02/21 04/03/21 04/03/21 Range/Units 19:44 00:51 08:24 WBC 5.2 4.9 3.7 L (4.5-11.0) K/mm3 RBC 4.88 4.71 5.05 H (3.65-5.03) M/mm3 Hgb 15.8 H 15.0 16.1 H (11.8-15.2) gm/dl Hct 46.3 H 44.5 47.5 H (35.5-45.6) % Plt Count 253 251 251 (140-440) K/mm3 Lymph # (Auto) 1.5 1.6 (1.2-5.4) K/mm3 [place] # (Auto) 0.6 0.4 (0.0-0.8) K/mm3 Eos # (Auto) 0.1 0.1 (0.0-0.4) K/mm3 Baso # (Auto) 0.0 0.0 (0.0-0.1) K/mm3 Comprehensive Metabolic Panel 04/02/21 04/03/21 04/03/21 Range/Units 19:44 00:51 08:24 Sodium 141 138 141 (137-145) mmol/L Potassium 4.1 3.7 4.2 (3.6-5.0) mmol/L Chloride 104.6 103.2 101.5 (98-107) mmol/L Carbon Dioxide 21 L 23 25 (22-30) mmol/L BUN 21 H 19 16 (9-20) mg/dL Creatinine 0.9 0.9 0.9 (0.8-1.3) mg/dL Glucose 87 117 H 89 (75-100) mg/dL Calcium 9.8 9.2 9.8 (8.4-10.2) mg/dL Assessment and Plan - Patient Problems (1) Atrial fibrillation/flutter Current Visit: Yes Status: Acute Plan to address problem: normal TSH at 2.3. no evidence of PE by CTA of chest.
[2021-04-03] MEDS ORDERED: AMIODARONE 300 MG in DEXTROSE 5% IN WATER 100 ML IV ONE (14:30)
[2021-04-03] MEDS: AMIODARONE 200 MG TAB PO SCH (15:13)
[2021-04-03 15:16] LABS: Hematocrit 47.1 % (35.5-45.6); Hemoglobin 16.3 gm/dl (11.8-15.2); Mean Corpuscular HGB Conc 35 % (32-34); Mean Corpuscular Volume 94 fl (84-94); Platelet Count 259 K/mm3 (140-440); Red Cell Distribution Width 15.1 % (13.2-15.2)
[2021-04-03 15:29] LABS: INR 0.91 (0.87-1.13)
[2021-04-03 15:30] LABS: Partial Thromboplastin Time 34.6 Sec. (24.2-36.6)
[2021-04-03] MEDS: APIXABAN 5 MG TAB PO SCH (21:21)
[2021-04-04 06:30] LABS: Hematocrit 46.1 % (35.5-45.6); Hemoglobin 15.5 gm/dl (11.8-15.2)
--- NOTE | 2021-04-04 08:53 | Progress Note ---
Assessment and Plan Assessment and plan: 61-year-old -[place] male with significant past medical history of hypertension presents to the emergency room today complaining of palpitation and shortness of breath which has been ongoing for the past few days. The patient was admitted with diagnosis of new onset atrial fibrillation, heart failure exacerbated and elevated troponin. Upon arrival in the emergency room patient was found to be in atrial flutterA. fib with a rate of 140 and was given 20 mg of diltiazem with significant rate control. Work-up in the emergency room today, chest x-ray shows no acute findings however CT angiogram showed no evidence of pulmonary embolism but has findings consistent with congestive heart failure. Labs were significant for slightly elevated troponin 0 0.066 then 0.071, elevated D-dimer of 380.8. Lipid profile were also abnormally elevated. New onset atrial fibrillation. Elevated troponin Pulmonary edema History of gout Chronic back pain Elevated D-dimer. CTA negative 04/03/2021. Follow-up echocardiogram and cardiology consultation. Etiology of pulmonary edema may be related to atrial fibrillation. Ischemic evaluation with stress test per cardiology. Continue to monitor cardiac isoenzymes and follow- up serial EKG. TSH within normal limits and CTA negative for PE. 04/04/2021. Patient's heart rate remains controlled on diltiazem and amiodarone. However, patient remains in a flutter. Cardiology with possible plans of VICKI guided cardioversion. Continue Eliquis 5 mg twice daily for anticoagulation. History Interval history: No new issues overnight. No chest pain or shortness of breath. Hospitalist Physical - Constitutional Vitals: Temp Pulse Resp BP Pulse Ox 97.6 F 63 18 134/89 95 04/04/21 04:45 04/04/21 04:45 04/04/21 04:45 04/04/21 04:45 04/04/21 04:45 General appearance: Present: no acute distress - EENT Eyes: Present: PERRL, EOM intact ENT: hearing intact, clear oral mucosa, dentition normal - Neck Neck: Present: supple, normal ROM - Respiratory Respiratory effort: normal Respiratory: bilateral: CTA - Cardiovascular Rhythm: regular Heart Sounds: Present: S1 & S2. Absent: gallop, rub - Extremities Extremities: no ischemia, No edema, Full ROM - Abdominal General gastrointestinal: soft, non-tender, non-distended, normal bowel sounds - Integumentary Integumentary: Present: clear, warm, dry - Neurologic Neurologic: CNII-XII intact, moves all extremities HEART Score - HEART Score Troponin: Troponin T 0.060 ng/mL (0.00-0.029) H 04/03/21 08:24 Results - Labs CBC & Chem 7: 04/04/21 05:38 04/03/21 14:43 Labs: Laboratory Last Values WBC 4.1 K/mm3 (4.5-11.0) L 04/03/21 14:43 RBC 5.00 M/mm3 (3.65-5.03) 04/03/21 14:43 Hgb 15.5 gm/dl (11.8-15.2) H 04/04/21 05:38 Hct 46.1 % (35.5-45.6) H 04/04/21 05:38 MCV 94 fl (84-94) 04/03/21 14:43 MCH 33 pg (28-32) H 04/03/21 14:43 MCHC 35 % (32-34) H 04/03/21 14:43 RDW 15.1 % (13.2-15.2) 04/03/21 14:43 Plt Count 246 K/mm3 (140-440) 04/04/21 05:38 Lymph % (Auto) 33.6 % (13.4-35.0) 04/03/21 00:51 [place] % (Auto) 8.8 % (0.0-7.3) H 04/03/21 00:51 Eos % (Auto) 2.4 % (0.0-4.3) 04/03/21 00:51 Baso % (Auto) 0.8 % (0.0-1.8) 04/03/21 00:51 Lymph # (Auto) 1.6 K/mm3 (1.2-5.4) 04/03/21 00:51 [place] # (Auto) 0.4 K/mm3 (0.0-0.8) 04/03/21 00:51 Eos # (Auto) 0.1 K/mm3 (0.0-0.4) 04/03/21 00:51 Baso # (Auto) 0.0 K/mm3 (0.0-0.1) 04/03/21 00:51 Seg Neutrophils % 54.4 % (40.0-70.0) 04/03/21 00:51 Seg Neutrophils # 2.7 K/mm3 (1.8-7.7) 04/03/21 00:51 PT 12.9 Sec. (12.2-14.9) 04/03/21 14:43 INR 0.91 (0.87-1.13) 04/03/21 14:43 APTT 34.6 Sec. (24.2-36.6) 04/03/21 14:43 D-Dimer 380.81 ng/mlDDU (0-234) H 04/02/21 19:44 Heparin Anti-Xa Level 0.17 U.I./ml (0.3-0.7) L 04/03/21 08:24 Sodium 141 mmol/L (137-145) 04/03/21 08:24 Potassium 4.2 mmol/L (3.6-5.0) 04/03/21 08:24 Chloride 101.5 mmol/L (98-107) 04/03/21 08:24 Carbon Dioxide 25 mmol/L (22-30) 04/03/21 08:24 Anion Gap 19 mmol/L 04/03/21 08:24 BUN 16 mg/dL (9-20) 04/03/21 08:24 Creatinine 0.8 mg/dL (0.8-1.3) 04/03/21 14:43 Estimated GFR > 60 ml/min 04/03/21 14:43 BUN/Creatinine Ratio 18 % 04/03/21 08:24 Glucose 89 mg/dL (75-100) 04/03/21 08:24 Calcium 9.8 mg/dL (8.4-10.2) 04/03/21 08:24 Magnesium 1.90 mg/dL (1.7-2.3) 04/02/21 19:44 Troponin T 0.060 ng/mL (0.00-0.029) H 04/03/21 08:24 NT-Pro-B Natriuret Pep 175.7 pg/mL (0-900) 04/02/21 19:44 Triglycerides 143 mg/dL (2-149) 04/02/21 19:44 Cholesterol 221 mg/dL (50-199) H 04/02/21 19:44 LDL Cholesterol Direct 136 mg/dL (50-130) H 04/02/21 19:44 HDL Cholesterol 65 mg/dL (40-59) H 04/02/21 19:44 Cholesterol/HDL Ratio 3.40 % 04/02/21 19:44 TSH 2.310 mlU/mL (0.270-4.200) 04/02/21 19:44 Thomas/IV: Voiding Method Toilet Active Medications - Current Medications Current Medications: Generic Name Dose Route Start Last Admin Trade Name Freq PRN Reason Stop Dose Admin Acetaminophen 650 mg 04/02/21 22:17 Acetaminophen 325 Mg Tab PO Q6H PRN Pain, Mild (1-3) Amiodarone HCl 200 mg 04/03/21 15:00 04/03/21 15:13 Amiodarone 200 Mg Tab PO 200 mg QDAY NANO Administration Apixaban 5 mg 04/03/21 22:00 04/03/21 21:21 Apixaban 5 Mg Tab PO 5 mg Q12HR NANO Administration Protocol Atorvastatin Calcium 40 mg 04/03/21 22:00 04/03/21 21:21 Atorvastatin 40 Mg Tab PO 40 mg QHS NANO Administration Diltiazem HCl 120 mg 04/04/21 10:00 Diltiazem Cd 120 Mg Cap PO QDAY NANO Magnesium Hydroxide 30 ml 04/02/21 22:17 Magnesium Hydroxide (Mom) Oral Liqd Udc PO Q4H PRN Constipation Morphine Sulfate 2 mg 04/02/21 22:17 Morphine 2 Mg/1 Ml Inj IV Q5MIN PRN Chest Pain unrelieved by NTG Nitroglycerin 0.4 mg 04/02/21 22:17 Nitroglycerin 0.4 Mg Tab Subl SL .Q5MIN PRN Chest Pain Ondansetron HCl 4 mg 04/02/21 22:17 Ondansetron 4 Mg/2 Ml Inj IV Q8H PRN Nausea And Vomiting Sodium Chloride 10 ml 04/03/21 10:00 04/04/21 08:20 Sodium Chloride 0.9% 10 Ml Flush Syringe IV Not Given BID NANO Sodium Chloride 10 ml 04/02/21 22:17 Sodium Chloride 0.9% 10 Ml Flush Syringe IV PRN PRN LINE FLUSH Tramadol HCl 50 mg 04/02/21 22:17 Tramadol 50 Mg Tab PO Q6H PRN Pain, Moderate (4-6)
[2021-04-04] MEDS: dilTIAZem CD 120 MG CAP PO SCH (09:36)
[2021-04-04] MEDS: APIXABAN 5 MG TAB PO SCH ×2 (09:37→21:29)
[2021-04-04] MEDS: AMIODARONE 200 MG TAB PO SCH (09:37)
--- NOTE | 2021-04-04 10:08 | Progress Note ---
Assessment and Plan 1. Acute on chronic combined systolic and diastolic heart failure 2. Dilated cardiomyopathy 3. Atrial flutter with variable AV block 5. Essential hypertension 6. Equivocal serum troponin elevation probably secondary to rapid atrial fibrillation/flutter Plan. Patient is feeling much better ventricular response to atrial flutter well controlled. Patient however will need further management we shall attempt to cardiovert after a VICKI is done on Tuesday. Check TSH level Subjective Date of service: 04/04/21 Interval history: No cardiac symptoms. Objective Vital Signs Temp Pulse Pulse Resp BP Pulse Ox 04/04/21 09:36 140/98 04/04/21 08:19 97.9 F 73 20 140/98 96 04/04/21 04:45 97.6 F 63 18 134/89 95 04/04/21 00:00 72 04/03/21 23:30 97.8 F 72 18 129/88 90 04/03/21 20:30 98.3 F 61 18 141/97 93 04/03/21 16:10 97.9 F 101 H 20 132/93 97 04/03/21 16:00 99 H 04/03/21 13:00 116 H 98 04/03/21 11:32 97.9 F 78 18 140/97 92 - Physical Examination General: Appears Well HEENT: Positive: PERRL Neck: Positive: trachea midline. Negative: JVD/HJR Cardiac: Positive: irregularly irregular, S1/S2, S3, PMI, Laterally Displaced Lungs: Positive: clear to auscultation, No Wheeze, Rales, Rhonchi Neuro: Positive: Grossly Intact Abdomen: Positive: Unremarkable, Active Bowel Sounds Extremities: Absent: edema - Labs and Meds Coagulation 04/03/21 Range/Units 14:43 PT 12.9 (12.2-14.9) Sec. INR 0.91 (0.87-1.13) APTT 34.6 (24.2-36.6) Sec. CBC 04/03/21 04/03/21 04/04/21 Range/Units 08:24 14:43 05:38 WBC 3.7 L 4.1 L (4.5-11.0) K/mm3 RBC 5.05 H 5.00 (3.65-5.03) M/mm3 Hgb 16.1 H 16.3 H 15.5 H (11.8-15.2) gm/dl Hct 47.5 H 47.1 H 46.1 H (35.5-45.6) % Plt Count 251 259 246 (140-440) K/mm3 Comprehensive Metabolic Panel 04/03/21 Range/Units 14:43 Creatinine 0.8 (0.8-1.3) mg/dL
[2021-04-05 06:05] LABS: Hematocrit 46.6 % (35.5-45.6); Hemoglobin 15.7 gm/dl (11.8-15.2); Mean Corpuscular HGB Conc 34 % (32-34); Mean Corpuscular Volume 94 fl (84-94); Platelet Count 259 K/mm3 (140-440); Red Blood Count 4.94 M/mm3 (3.65-5.03); Red Cell Distribution Width 14.4 % (13.2-15.2)
[2021-04-05] MEDS: AMIODARONE 200 MG TAB PO SCH (09:40)
[2021-04-05] MEDS: dilTIAZem CD 120 MG CAP PO SCH (09:40)
[2021-04-05] MEDS: APIXABAN 5 MG TAB PO SCH ×2 (09:40→22:47)
--- NOTE | 2021-04-05 10:16 | Progress Note ---
Assessment and Plan Assessment and plan: 61-year-old -[place] male with significant past medical history of hypertension presents to the emergency room today complaining of palpitation and shortness of breath which has been ongoing for the past few days. The patient was admitted with diagnosis of new onset atrial fibrillation, heart failure exacerbated and elevated troponin. Upon arrival in the emergency room patient was found to be in atrial flutterA. fib with a rate of 140 and was given 20 mg of diltiazem with significant rate control. Work-up in the emergency room today, chest x-ray shows no acute findings however CT angiogram showed no evidence of pulmonary embolism but has findings consistent with congestive heart failure. Labs were significant for slightly elevated troponin 0 0.066 then 0.071, elevated D-dimer of 380.8. Lipid profile were also abnormally elevated. New onset atrial fibrillation. Elevated troponin Pulmonary edema History of gout Chronic back pain Elevated D-dimer. CTA negative 04/03/2021. Follow-up echocardiogram and cardiology consultation. Etiology of pulmonary edema may be related to atrial fibrillation. Ischemic evaluation with stress test per cardiology. Continue to monitor cardiac isoenzymes and follow- up serial EKG. TSH within normal limits and CTA negative for PE. 04/04/2021. Patient's heart rate remains controlled on diltiazem and amiodarone. However, patient remains in a flutter. Cardiology with possible plans of VICKI guided cardioversion. Continue Eliquis 5 mg twice daily for anticoagulation. 04/05/2021. Cardiology plans for VICKI cardioversion tomorrow. TSH within normal limits. Continue diltiazem, amiodarone and Eliquis. History Interval history: No new issues overnight. No chest pain or shortness of breath. Hospitalist Physical - Constitutional Vitals: Temp Pulse Resp BP Pulse Ox 97.5 F L 77 20 142/93 93 04/05/21 09:35 04/05/21 09:35 04/05/21 09:35 04/05/21 09:35 04/05/21 09:35 General appearance: Present: no acute distress - EENT Eyes: Present: PERRL, EOM intact ENT: hearing intact, clear oral mucosa, dentition normal - Neck Neck: Present: supple, normal ROM - Respiratory Respiratory effort: normal Respiratory: bilateral: CTA - Cardiovascular Rhythm: regular Heart Sounds: Present: S1 & S2. Absent: gallop, rub - Extremities Extremities: no ischemia, No edema, Full ROM - Abdominal General gastrointestinal: soft, non-tender, non-distended, normal bowel sounds - Integumentary Integumentary: Present: clear, warm, dry - Neurologic Neurologic: CNII-XII intact, moves all extremities HEART Score - HEART Score Troponin: Troponin T 0.060 ng/mL (0.00-0.029) H 04/03/21 08:24 Results - Labs CBC & Chem 7: 04/05/21 05:40 04/03/21 14:43 Labs: Laboratory Last Values WBC 4.6 K/mm3 (4.5-11.0) 04/05/21 05:40 RBC 4.94 M/mm3 (3.65-5.03) 04/05/21 05:40 Hgb 15.7 gm/dl (11.8-15.2) H 04/05/21 05:40 Hct 46.6 % (35.5-45.6) H 04/05/21 05:40 MCV 94 fl (84-94) 04/05/21 05:40 MCH 32 pg (28-32) 04/05/21 05:40 MCHC 34 % (32-34) 04/05/21 05:40 RDW 14.4 % (13.2-15.2) 04/05/21 05:40 Plt Count 259 K/mm3 (140-440) 04/05/21 05:40 Lymph % (Auto) 33.6 % (13.4-35.0) 04/03/21 00:51 [place] % (Auto) 8.8 % (0.0-7.3) H 04/03/21 00:51 Eos % (Auto) 2.4 % (0.0-4.3) 04/03/21 00:51 Baso % (Auto) 0.8 % (0.0-1.8) 04/03/21 00:51 Lymph # (Auto) 1.6 K/mm3 (1.2-5.4) 04/03/21 00:51 [place] # (Auto) 0.4 K/mm3 (0.0-0.8) 04/03/21 00:51 Eos # (Auto) 0.1 K/mm3 (0.0-0.4) 04/03/21 00:51 Baso # (Auto) 0.0 K/mm3 (0.0-0.1) 04/03/21 00:51 Seg Neutrophils % 54.4 % (40.0-70.0) 04/03/21 00:51 Seg Neutrophils # 2.7 K/mm3 (1.8-7.7) 04/03/21 00:51 PT 12.9 Sec. (12.2-14.9) 04/03/21 14:43 INR 0.91 (0.87-1.13) 04/03/21 14:43 APTT 34.6 Sec. (24.2-36.6) 04/03/21 14:43 D-Dimer 380.81 ng/mlDDU (0-234) H 04/02/21 19:44 Heparin Anti-Xa Level 0.17 U.I./ml (0.3-0.7) L 04/03/21 08:24 Sodium 141 mmol/L (137-145) 04/03/21 08:24 Potassium 4.2 mmol/L (3.6-5.0) 04/03/21 08:24 Chloride 101.5 mmol/L (98-107) 04/03/21 08:24 Carbon Dioxide 25 mmol/L (22-30) 04/03/21 08:24 Anion Gap 19 mmol/L 04/03/21 08:24 BUN 16 mg/dL (9-20) 04/03/21 08:24 Creatinine 0.8 mg/dL (0.8-1.3) 04/03/21 14:43 Estimated GFR > 60 ml/min 04/03/21 14:43 BUN/Creatinine Ratio 18 % 04/03/21 08:24 Glucose 89 mg/dL (75-100) 04/03/21 08:24 Calcium 9.8 mg/dL (8.4-10.2) 04/03/21 08:24 Magnesium 1.90 mg/dL (1.7-2.3) 04/02/21 19:44 Troponin T 0.060 ng/mL (0.00-0.029) H 04/03/21 08:24 NT-Pro-B Natriuret Pep 175.7 pg/mL (0-900) 04/02/21 19:44 Triglycerides 143 mg/dL (2-149) 04/02/21 19:44 Cholesterol 221 mg/dL (50-199) H 04/02/21 19:44 LDL Cholesterol Direct 136 mg/dL (50-130) H 04/02/21 19:44 HDL Cholesterol 65 mg/dL (40-59) H 04/02/21 19:44 Cholesterol/HDL Ratio 3.40 % 04/02/21 19:44 TSH 2.080 mlU/mL (0.270-4.200) 04/04/21 10:27 Thomas/IV: Voiding Method Toilet Active Medications - Current Medications Current Medications: Generic Name Dose Route Start Last Admin Trade Name Freq PRN Reason Stop Dose Admin Acetaminophen 650 mg 04/02/21 22:17 Acetaminophen 325 Mg Tab PO Q6H PRN Pain, Mild (1-3) Amiodarone HCl 200 mg 04/03/21 15:00 04/05/21 09:40 Amiodarone 200 Mg Tab PO 200 mg QDAY NANO Administration Apixaban 5 mg 04/03/21 22:00 04/05/21 09:40 Apixaban 5 Mg Tab PO 5 mg Q12HR NANO Administration Protocol Atorvastatin Calcium 40 mg 04/03/21 22:00 04/04/21 21:29 Atorvastatin 40 Mg Tab PO 40 mg QHS NANO Administration Diltiazem HCl 120 mg 04/04/21 10:00 04/05/21 09:40 Diltiazem Cd 120 Mg Cap PO 120 mg QDAY NANO Administration Magnesium Hydroxide 30 ml 04/02/21 22:17 Magnesium Hydroxide (Mom) Oral Liqd Udc PO Q4H PRN Constipation Morphine Sulfate 2 mg 04/02/21 22:17 Morphine 2 Mg/1 Ml Inj IV Q5MIN PRN Chest Pain unrelieved by NTG Nitroglycerin 0.4 mg 04/02/21 22:17 Nitroglycerin 0.4 Mg Tab Subl SL .Q5MIN PRN Chest Pain Ondansetron HCl 4 mg 04/02/21 22:17 Ondansetron 4 Mg/2 Ml Inj IV Q8H PRN Nausea And Vomiting Sodium Chloride 10 ml 04/03/21 10:00 04/05/21 09:41 Sodium Chloride 0.9% 10 Ml Flush Syringe IV 10 ml BID NANO Administration Sodium Chloride 10 ml 04/02/21 22:17 Sodium Chloride 0.9% 10 Ml Flush Syringe IV PRN PRN LINE FLUSH Tramadol HCl 50 mg 04/02/21 22:17 Tramadol 50 Mg Tab PO Q6H PRN Pain, Moderate (4-6)
--- NOTE | 2021-04-05 10:18 | Progress Note ---
Assessment and Plan 1. Acute on chronic combined systolic and diastolic heart failure 2. Dilated cardiomyopathy 3. Atrial flutter with variable AV block 5. Essential hypertension 6. Equivocal serum troponin elevation probably secondary to rapid atrial fibrillation/flutter Plan. Patient is feeling much better ventricular response to atrial flutter well controlled. Patient rhythm strips last night showing 2.2 second pauses. Keep NPO after midnight for VICKI followed by cardioversion Subjective Date of service: 04/05/21 Principal diagnosis: Atrial Fib/Flutter Interval history: No cardiac symptoms. Objective Vital Signs Temp Pulse Resp BP Pulse Ox 04/05/21 09:35 97.5 F L 77 20 142/93 93 04/05/21 06:00 72 04/05/21 04:04 97.5 F L 79 18 125/88 97 04/04/21 23:44 97.2 F L 73 18 141/99 95 04/04/21 22:00 69 04/04/21 20:35 74 18 134/97 99 04/04/21 16:21 97.9 F 76 18 127/87 97 04/04/21 14:09 77 04/04/21 12:21 18 04/04/21 11:22 97.9 F 72 18 124/88 97 - Physical Examination General: Appears Well HEENT: Positive: PERRL Neck: Positive: trachea midline. Negative: JVD/HJR Cardiac: Positive: irregularly irregular, S1/S2, S3, PMI, Dilated, Laterally Displaced. Negative: S4 Lungs: Positive: Normal Breath Sounds, No Wheeze, Rales, Rhonchi Neuro: Positive: Grossly Intact Abdomen: Positive: Unremarkable, Active Bowel Sounds Extremities: Absent: edema - Labs and Meds CBC 04/05/21 Range/Units 05:40 WBC 4.6 (4.5-11.0) K/mm3 RBC 4.94 (3.65-5.03) M/mm3 Hgb 15.7 H (11.8-15.2) gm/dl Hct 46.6 H (35.5-45.6) % Plt Count 259 (140-440) K/mm3
[2021-04-06 06:19] LABS: Hematocrit 47.6 % (35.5-45.6); Hemoglobin 15.8 gm/dl (11.8-15.2)
--- NOTE | 2021-04-06 08:48 | Discharge Summary ---
Providers - Providers Date of Admission: 04/02/21 22:03 Date of discharge: 04/06/21 Attending physician: MIKE ESPINAL 04/02/21 Consult to Cardiac Rehabilitation [CONS] Routine Reason For Exam: Phase I 04/02/21 22:20 Consult to Cardiology [CONS] Routine Consulting Provider: LEORA FARR Reason For Exam: AFIB, CHF- NEW ONSET Primary care physician: [facility] Hospitalization Reason for admission: new afib Condition: Stable Hospital course: 61-year-old -[place] male with significant past medical history of hypertension presents to the emergency room today complaining of palpitation and shortness of breath which has been ongoing for the past few days. The patient was admitted with diagnosis of new onset atrial fibrillation, heart failure exacerbation, history of gout, elevated D-dimer and elevated troponin. Upon arrival in the emergency room patient was found to be in atrial flutter/A. fib with a rate of 140 and was given 20 mg of diltiazem with significant rate control. Work-up in the emergency room included chest x-ray which showed no acute findings. CT angiogram showed no evidence of pulmonary embolism but had findings consistent with congestive heart failure. Labs were significant for slightly elevated troponin 0 0.066 then 0.071, elevated D-dimer of 380.8. Lipid profile were also abnormally elevated. Hospital course: 04/03/2021. Echocardiogram revealed left ventricle moderately dilated and systolic function severely decreased. Mild concentric left ventricular hypertrophy with EF of 25 to 30%. Etiology of pulmonary edema may be related to atrial fibrillation. Ischemic evaluation with stress test per cardiology. Continue to monitor cardiac isoenzymes and follow-up serial EKG. TSH within normal limits and CTA negative for PE. 04/04/2021. Patient's heart rate remains controlled on diltiazem and amiodarone. However, patient remains in a flutter. Cardiology with possible plans of VICKI guided cardioversion. Continue Eliquis 5 mg twice daily for anticoagulation. 04/05/2021. Cardiology plans for VICKI cardioversion tomorrow. TSH within normal limits. Continue diltiazem, amiodarone and Eliquis. 04/06/2021. Patient for VICKI cardioversion today. The patient is cardioverted and stable will likely discharge this afternoon. Discharge diagnosis: Acute on chronic combined systolic and diastolic heart failure, dilated cardiomyopathy, atrial flutter with variable AV block, hypertension Dedicated discharge time 35 minutes. Final Discharge Diagnosis (Prints w/discharge instructions): Acute on chronic combined systolic and diastolic heart failure, dilated cardiomyopathy, atrial flutter with variable AV block, hypertension Core Measure Documentation - Palliative Care Palliative Care/ Comfort Measures: Not Applicable - Core Measures Any of the following diagnoses?: none Exam - Constitutional Vitals: Temp Pulse Resp BP Pulse Ox 97.8 F 87 18 117/84 97 04/06/21 04:10 04/06/21 06:00 04/06/21 04:10 04/06/21 04:10 04/06/21 04:10 General appearance: Present: no acute distress, well-nourished - EENT Eyes: Present: PERRL ENT: hearing intact, clear oral mucosa - Neck Neck: Present: supple, normal ROM - Respiratory Respiratory effort: normal Respiratory: bilateral: CTA - Cardiovascular Heart Sounds: Present: S1 & S2. Absent: rub, click - Extremities Extremities: pulses symmetrical, No edema Peripheral Pulses: within normal limits - Abdominal General gastrointestinal: Present: soft, non-tender, non-distended, normal bowel sounds Male genitourinary: Present: normal - Integumentary Integumentary: Present: clear, warm, dry - Musculoskeletal Musculoskeletal: gait normal, strength equal bilaterally - Psychiatric Psychiatric: appropriate mood/affect, intact judgment & insight - Neurologic Neurologic: CNII-XII intact, moves all extremities Plan Activity: advance as tolerated Weight Bearing Status: Weight Bear as Tolerated Diet: low fat, low cholesterol, low salt Follow up with: PRIMARY CARE, [Primary Care Provider] - 7 Days Prescriptions: [id number] CD [Cardizem CD] 120 mg PO QDAY #30 capsule Amiodarone [Cordarone 200 MG TAB] 200 mg PO QDAY #30 tablet Apixaban [Eliquis] 5 mg PO Q12HR #60 tablet AtorvaSTATin [Lipitor] 40 mg PO QHS #30 tablet
--- NOTE | 2021-04-06 10:59 | Progress Note ---
Assessment and Plan Assessment and plan: 61-year-old -[place]aporean male with significant past medical history of hypertension presents to the emergency room today complaining of palpitation and shortness of breath which has been ongoing for the past few days. The patient was admitted with diagnosis of new onset atrial fibrillation, heart failure exacerbation, history of gout, elevated D-dimer and elevated troponin. Upon arrival in the emergency room patient was found to be in atrial flutter/A. fib with a rate of 140 and was given 20 mg of diltiazem with significant rate control. Work-up in the emergency room included chest x-ray which showed no acute findings. CT angiogram showed no evidence of pulmonary embolism but had findings consistent with congestive heart failure. Labs were significant for slightly elevated troponin 0 0.066 then 0.071, elevated D-dimer of 380.8. Lipid profile were also abnormally elevated. Hospital course: 04/03/2021. Echocardiogram revealed left ventricle moderately dilated and systolic function severely decreased. Mild concentric left ventricular hypertrophy with EF of 25 to 30%. Etiology of pulmonary edema may be related to atrial fibrillation. Ischemic evaluation with stress test per cardiology. Continue to monitor cardiac isoenzymes and follow-up serial EKG. TSH within normal limits and CTA negative for PE. 04/04/2021. Patient's heart rate remains controlled on diltiazem and amiodarone. However, patient remains in a flutter. Cardiology with possible plans of VICKI guided cardioversion. Continue Eliquis 5 mg twice daily for anticoagulation. 04/05/2021. Cardiology plans for VICKI cardioversion tomorrow. TSH within normal limits. Continue diltiazem, amiodarone and Eliquis. 04/06/2021. Continue amiodarone and Eliquis per cardiology recommendations. Cardiology also added Coreg 3.125 mg p.o. twice daily, 25 mg spironolactone daily and lisinopril 2.5 mg daily. VICKI could not be completed today and is planned for tomorrow. History Interval history: No new issues overnight. No chest pain or shortness of breath. Hospitalist Physical - Constitutional Vitals: Temp Pulse Resp BP Pulse Ox 98.0 F 77 20 115/87 97 04/06/21 07:51 04/06/21 07:51 04/06/21 07:51 04/06/21 07:51 04/06/21 07:51 General appearance: Present: no acute distress, well-nourished - EENT Eyes: Present: PERRL, EOM intact ENT: hearing intact, clear oral mucosa, dentition normal - Neck Neck: Present: supple, normal ROM - Respiratory Respiratory effort: normal Respiratory: bilateral: CTA - Cardiovascular Rhythm: regular Heart Sounds: Present: S1 & S2. Absent: gallop, rub - Extremities Extremities: no ischemia, No edema, Full ROM - Abdominal General gastrointestinal: soft, non-tender, non-distended, normal bowel sounds - Integumentary Integumentary: Present: clear, warm, dry - Neurologic Neurologic: CNII-XII intact, moves all extremities HEART Score - HEART Score Troponin: Troponin T 0.060 ng/mL (0.00-0.029) H 04/03/21 08:24 Results - Labs CBC & Chem 7: 04/06/21 05:16 04/06/21 05:16 Labs: Laboratory Last Values WBC 4.6 K/mm3 (4.5-11.0) 04/05/21 05:40 RBC 4.94 M/mm3 (3.65-5.03) 04/05/21 05:40 Hgb 15.8 gm/dl (11.8-15.2) H 04/06/21 05:16 Hct 47.6 % (35.5-45.6) H 04/06/21 05:16 MCV 94 fl (84-94) 04/05/21 05:40 MCH 32 pg (28-32) 04/05/21 05:40 MCHC 34 % (32-34) 04/05/21 05:40 RDW 14.4 % (13.2-15.2) 04/05/21 05:40 Plt Count 309 K/mm3 (140-440) 04/06/21 05:16 Lymph % (Auto) 33.6 % (13.4-35.0) 04/03/21 00:51 [place] % (Auto) 8.8 % (0.0-7.3) H 04/03/21 00:51 Eos % (Auto) 2.4 % (0.0-4.3) 04/03/21 00:51 Baso % (Auto) 0.8 % (0.0-1.8) 04/03/21 00:51 Lymph # (Auto) 1.6 K/mm3 (1.2-5.4) 04/03/21 00:51 [place] # (Auto) 0.4 K/mm3 (0.0-0.8) 04/03/21 00:51 Eos # (Auto) 0.1 K/mm3 (0.0-0.4) 04/03/21 00:51 Baso # (Auto) 0.0 K/mm3 (0.0-0.1) 04/03/21 00:51 Seg Neutrophils % 54.4 % (40.0-70.0) 04/03/21 00:51 Seg Neutrophils # 2.7 K/mm3 (1.8-7.7) 04/03/21 00:51 PT 12.9 Sec. (12.2-14.9) 04/03/21 14:43 INR 0.91 (0.87-1.13) 04/03/21 14:43 APTT 34.6 Sec. (24.2-36.6) 04/03/21 14:43 D-Dimer 380.81 ng/mlDDU (0-234) H 04/02/21 19:44 Heparin Anti-Xa Level 0.17 U.I./ml (0.3-0.7) L 04/03/21 08:24 Sodium 141 mmol/L (137-145) 04/03/21 08:24 Potassium 4.2 mmol/L (3.6-5.0) 04/03/21 08:24 Chloride 101.5 mmol/L (98-107) 04/03/21 08:24 Carbon Dioxide 25 mmol/L (22-30) 04/03/21 08:24 Anion Gap 19 mmol/L 04/03/21 08:24 BUN 16 mg/dL (9-20) 04/03/21 08:24 Creatinine 1.0 mg/dL (0.8-1.3) 04/06/21 05:16 Estimated GFR > 60 ml/min 04/06/21 05:16 BUN/Creatinine Ratio 18 % 04/03/21 08:24 Glucose 89 mg/dL (75-100) 04/03/21 08:24 Calcium 9.8 mg/dL (8.4-10.2) 04/03/21 08:24 Magnesium 1.90 mg/dL (1.7-2.3) 04/02/21 19:44 Troponin T 0.060 ng/mL (0.00-0.029) H 04/03/21 08:24 NT-Pro-B Natriuret Pep 175.7 pg/mL (0-900) 04/02/21 19:44 Triglycerides 143 mg/dL (2-149) 04/02/21 19:44 Cholesterol 221 mg/dL (50-199) H 04/02/21 19:44 LDL Cholesterol Direct 136 mg/dL (50-130) H 04/02/21 19:44 HDL Cholesterol 65 mg/dL (40-59) H 04/02/21 19:44 Cholesterol/HDL Ratio 3.40 % 04/02/21 19:44 TSH 2.080 mlU/mL (0.270-4.200) 04/04/21 10:27 Thomas/IV: Voiding Method Toilet Active Medications - Current Medications Current Medications: Generic Name Dose Route Start Last Admin Trade Name Freq PRN Reason Stop Dose Admin Acetaminophen 650 mg 04/02/21 22:17 Acetaminophen 325 Mg Tab PO Q6H PRN Pain, Mild (1-3) Amiodarone HCl 200 mg 04/03/21 15:00 04/05/21 09:40 Amiodarone 200 Mg Tab PO 200 mg QDAY NANO Administration Apixaban 5 mg 04/03/21 22:00 04/05/21 22:47 Apixaban 5 Mg Tab PO 5 mg Q12HR NANO Administration Protocol Atorvastatin Calcium 40 mg 04/03/21 22:00 04/05/21 22:47 Atorvastatin 40 Mg Tab PO 40 mg QHS NANO Administration Carvedilol 3.125 mg 04/06/21 22:00 Carvedilol 3.125 Mg Tab PO BID NANO Lisinopril 2.5 mg 04/07/21 10:00 Lisinopril 5 Mg Tab PO QDAY NANO Magnesium Hydroxide 30 ml 04/02/21 22:17 Magnesium Hydroxide (Mom) Oral Liqd Udc PO Q4H PRN Constipation Morphine Sulfate 2 mg 04/02/21 22:17 Morphine 2 Mg/1 Ml Inj IV Q5MIN PRN Chest Pain unrelieved by NTG Nitroglycerin 0.4 mg 04/02/21 22:17 Nitroglycerin 0.4 Mg Tab Subl SL .Q5MIN PRN Chest Pain Ondansetron HCl 4 mg 04/02/21 22:17 Ondansetron 4 Mg/2 Ml Inj IV Q8H PRN Nausea And Vomiting Sodium Chloride 10 ml 04/03/21 10:00 04/05/21 22:48 Sodium Chloride 0.9% 10 Ml Flush Syringe IV 10 ml BID NANO Administration Sodium Chloride 10 ml 04/02/21 22:17 Sodium Chloride 0.9% 10 Ml Flush Syringe IV PRN PRN LINE FLUSH Spironolactone 25 mg 04/06/21 11:00 Spironolactone 25 Mg Tab PO QDAY NANO Tramadol HCl 50 mg 04/02/21 22:17 Tramadol 50 Mg Tab PO Q6H PRN Pain, Moderate (4-6)
[2021-04-06] MEDS ORDERED: LIP THERAPY VASELINE TP PRN (12:00)
--- NOTE | 2021-04-06 12:19 | Progress Note ---
Assessment and Plan - Patient Problems (1) Atrial fibrillation/flutter Current Visit: Yes Status: Acute Plan to address problem: Patient is awaiting VICKI guided cardioversion. Due to scheduling requirements of anesthesia, cardiology and the echocardiography laboratory, the procedure could not be done today and will be scheduled for tomorrow morning. (2) Dilated cardiomyopathy Current Visit: Yes Status: Acute Plan to address problem: Patient was found on this presentation with severe left ventricular dysfunction, ejection fraction 25 to 30%. Chronicity of this is uncertain. We will start the patient on lisinopril, carvedilol and spironolactone. We will discontinue diltiazem with the presence of carvedilol and amiodarone therapy. It appears likely that his cardiomyopathy is nonischemic, but after his atrial fibrillation is resolved, ultimately as outpatient we will recommend myocardial perfusion study for ischemic evaluation. Subjective Date of service: 04/06/21 Principal diagnosis: Atrial Fib/Flutter Interval history: Patient is comfortable, no new cardiac complaints. He remains in atrial flutter, with well-controlled ventricular rate. He is awaiting VICKI guided cardioversion. It will be recalled that his echocardiogram showed severe left ventricular dysfunction with ejection fraction 25 to 30%. The chronicity of the cardiomyopathy is uncertain. Objective Vital Signs Temp Pulse Resp BP Pulse Ox 04/06/21 07:51 98.0 F 77 20 115/87 97 04/06/21 06:00 87 04/06/21 04:10 97.8 F 73 18 117/84 97 04/06/21 00:00 18 98 04/05/21 23:53 98.4 F 79 18 130/94 92 04/05/21 22:00 72 04/05/21 19:36 98.6 F 73 18 119/94 95 04/05/21 16:43 98.0 F 71 20 128/75 97 04/05/21 14:59 75 04/05/21 13:31 98.1 F 76 20 143/102 95 - Physical Examination General: Appears Well HEENT: Positive: PERRL Neck: Positive: trachea midline. Negative: JVD/HJR Cardiac: Positive: irregularly irregular Lungs: Positive: Decreased Breath Sounds Neuro: Positive: Grossly Intact Abdomen: Positive: Unremarkable, Active Bowel Sounds Skin: Positive: Clear Extremities: Absent: edema - Labs and Meds CBC 04/06/21 Range/Units 05:16 Hgb 15.8 H (11.8-15.2) gm/dl Hct 47.6 H (35.5-45.6) % Plt Count 309 (140-440) K/mm3 Comprehensive Metabolic Panel 04/06/21 Range/Units 05:16 Creatinine 1.0 (0.8-1.3) mg/dL
[2021-04-06] MEDS: LISINOPRIL 5 MG TAB PO SCH (12:33)
[2021-04-06] MEDS: APIXABAN 5 MG TAB PO SCH ×2 (12:35→21:41)
[2021-04-06] MEDS: SPIRONOLACTONE 25 MG TAB PO SCH (12:36)
[2021-04-06] MEDS: AMIODARONE 200 MG TAB PO SCH (12:39)
--- NOTE | 2021-04-06 17:32 | Electrocardiograph Report ---
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
--- NOTE | 2021-04-06 17:39 | Electrocardiograph Report ---
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
--- NOTE | 2021-04-06 17:42 | Electrocardiograph Report ---
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
[2021-04-06] MEDS: carvediloL 3.125 MG TAB PO SCH (21:41)
[2021-04-07] MEDS ORDERED: ePHEDrine SULFATE 50 MG/1 ML INJ ONE (00:24)
[2021-04-07 06:50] LABS: Hematocrit 44.8 % (35.5-45.6); Hemoglobin 15.4 gm/dl (11.8-15.2); Mean Corpuscular HGB Conc 35 % (32-34); Mean Corpuscular Volume 94 fl (84-94); Platelet Count 245 K/mm3 (140-440); Red Blood Count 4.74 M/mm3 (3.65-5.03); Red Cell Distribution Width 14.5 % (13.2-15.2)
[2021-04-07] MEDS: LISINOPRIL 5 MG TAB PO SCH (09:42)
[2021-04-07] MEDS: SPIRONOLACTONE 25 MG TAB PO SCH (09:42)
[2021-04-07] MEDS ORDERED: SODIUM CHLORIDE 0.9% 1000 ML 1,000 ML IV ONE (11:47)
[2021-04-07] MEDS ORDERED: BENZOCAINE 20% TOP SPRAY 0.5 ML UNIT DOSE MM NR (12:00)
[2021-04-07] MEDS ORDERED: propofoL 200 MG/20 ML VIAL IV ONE ×2 (12:32)
--- NOTE | 2021-04-07 12:41 | Anesthesia Day of Surgery ---
Anesthesia Day of Surgery - Day of Surgery Patient Examined: Yes Patient H&P Reviewed: Yes Patient is NPO: Yes
--- NOTE | 2021-04-07 12:44 | Anesthesia Consultation ---
Anesthesia Consult and Med Hx Date of service: 04/07/21 - Airway Anesthetic Teeth Evaluation: Chipped ROM Head & Neck: Adequate Mental/Hyoid Distance: Adequate Mallampati Class: Class II Intubation Access Assessment: Good - Pre-Operative Health Status ASA Pre-Surgery Classification: ASA3 Proposed Anesthetic Plan: MAC - Pulmonary Hx Smoking: Yes - Cardiovascular System Hx Hypertension: Yes (dilated cardiomyopathy EF .25-.30) Hx Cardia Arrhythmia: Yes (Afib/flutter) - Central Nervous System Hx Back Pain: Yes (Going to have surgery) - Other Systems Hx Cancer: No Hx Obesity: Yes - Additional Comments Anesthesia Medical History Comments: 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
--- NOTE | 2021-04-07 15:26 | Progress Note ---
Assessment and Plan Assessment and plan: 61-year-old -[place] male with significant past medical history of hypertension presents to the emergency room today complaining of palpitation and shortness of breath which has been ongoing for the past few days. Patient was diagnosed with new onset atrial fibrillation/flutter. Cardiology consulted, medical management and cardioversion pending New onset atrial fibrillation. Patient started on amiodarone and carvedilol Currently on Eliquis VICKI cardioversion pending Cardiology following NSTEMI type II Secondary to atrial fibrillation Hypertension Lisinopril Pulmonary edema Resolved History of gout Patient is currently not on any allopurinol Chronic back pain Tramadol CODE STATUS: Full DVT prophylaxis: Eliquis Disposition: Cardioversion today, anticipate discharge in the next 24 hours. History Interval history: 04/03/2021. Echocardiogram revealed left ventricle moderately dilated and systol ic function severely decreased. Mild concentric left ventricular hypertrophy with EF of 25 to 30%. Etiology of pulmonary edema may be related to atrial fibrillation. Ischemic evaluation with stress test per cardiology. Continue to monitor cardiac isoenzymes and follow-up serial EKG. TSH within normal limits and CTA negative for PE. 04/04/2021. Patient's heart rate remains controlled on diltiazem and amiodarone. However, patient remains in a flutter. Cardiology with possible plans of VICKI guided cardioversion. Continue Eliquis 5 mg twice daily for anticoagulation. 04/05/2021. Cardiology plans for VICKI cardioversion tomorrow. TSH within normal limits. Continue diltiazem, amiodarone and Eliquis. 04/06/2021. Continue amiodarone and Eliquis per cardiology recommendations. Cardiology also added Coreg 3.125 mg p.o. twice daily, 25 mg spironolactone daily and lisinopril 2.5 mg daily. VICKI could not be completed today and is planned for tomorrow. 04/07/2021: Patient to have VICKI cardioversion today. Patient states that he does not have any shortness of breath or chest pain. Hospitalist Physical - Physical exam Narrative exam: General appearance: no acute distress, well-nourished EENT: PERRL, EOM intact, hearing intact, clear oral mucosa Neck: Present: supple, normal ROM Respiratory: bilateral CTA, negative: rales, rhonchi, wheezing Cardiovascular: Irregular rate/rhythm, Normal S1 & S2. No gallop, rub Extremities: no ischemia, No edema, normal temperature, normal color, Full ROM Abdominal: soft, no tenderness, non-distended, normal bowel sounds Integumentary: Present: clear, warm, dry no wounds, no erythema noted Psychiatric: appropriate mood/affect, intact judgment & insight Neurologic: CNII-XII intact, moves all extremities, no sensory or motor abnormalities - Constitutional Vitals: Temp Pulse Resp BP Pulse Ox 98.4 F 90 19 122/77 100 04/07/21 11:55 04/07/21 14:00 04/07/21 14:00 04/07/21 14:00 04/07/21 14:00 HEART Score - HEART Score Troponin: Troponin T 0.060 ng/mL (0.00-0.029) H 04/03/21 08:24 Results - Labs CBC & Chem 7: 04/07/21 06:21 04/06/21 05:16 Labs: Laboratory Last Values WBC 5.1 K/mm3 (4.5-11.0) 04/07/21 06:21 RBC 4.74 M/mm3 (3.65-5.03) 04/07/21 06:21 Hgb 15.4 gm/dl (11.8-15.2) H 04/07/21 06:21 Hct 44.8 % (35.5-45.6) 04/07/21 06:21 MCV 94 fl (84-94) 04/07/21 06:21 MCH 33 pg (28-32) H 04/07/21 06:21 MCHC 35 % (32-34) H 04/07/21 06:21 RDW 14.5 % (13.2-15.2) 04/07/21 06:21 Plt Count 245 K/mm3 (140-440) 04/07/21 06:21 Lymph % (Auto) 33.6 % (13.4-35.0) 04/03/21 00:51 Lamb % (Auto) 8.8 % (0.0-7.3) H 04/03/21 00:51 Eos % (Auto) 2.4 % (0.0-4.3) 04/03/21 00:51 Baso % (Auto) 0.8 % (0.0-1.8) 04/03/21 00:51 Lymph # (Auto) 1.6 K/mm3 (1.2-5.4) 04/03/21 00:51 Lamb # (Auto) 0.4 K/mm3 (0.0-0.8) 04/03/21 00:51 Eos # (Auto) 0.1 K/mm3 (0.0-0.4) 04/03/21 00:51 Baso # (Auto) 0.0 K/mm3 (0.0-0.1) 04/03/21 00:51 Seg Neutrophils % 54.4 % (40.0-70.0) 04/03/21 00:51 Seg Neutrophils # 2.7 K/mm3 (1.8-7.7) 04/03/21 00:51 PT 12.9 Sec. (12.2-14.9) 04/03/21 14:43 INR 0.91 (0.87-1.13) 04/03/21 14:43 APTT 34.6 Sec. (24.2-36.6) 04/03/21 14:43 D-Dimer 380.81 ng/mlDDU (0-234) H 04/02/21 19:44 Heparin Anti-Xa Level 0.17 U.I./ml (0.3-0.7) L 04/03/21 08:24 Sodium 141 mmol/L (137-145) 04/03/21 08:24 Potassium 4.2 mmol/L (3.6-5.0) 04/03/21 08:24 Chloride 101.5 mmol/L (98-107) 04/03/21 08:24 Carbon Dioxide 25 mmol/L (22-30) 04/03/21 08:24 Anion Gap 19 mmol/L 04/03/21 08:24 BUN 16 mg/dL (9-20) 04/03/21 08:24 Creatinine 1.0 mg/dL (0.8-1.3) 04/06/21 05:16 Estimated GFR > 60 ml/min 04/06/21 05:16 BUN/Creatinine Ratio 18 % 04/03/21 08:24 Glucose 89 mg/dL (75-100) 04/03/21 08:24 Calcium 9.8 mg/dL (8.4-10.2) 04/03/21 08:24 Magnesium 1.90 mg/dL (1.7-2.3) 04/02/21 19:44 Troponin T 0.060 ng/mL (0.00-0.029) H 04/03/21 08:24 NT-Pro-B Natriuret Pep 175.7 pg/mL (0-900) 04/02/21 19:44 Triglycerides 143 mg/dL (2-149) 04/02/21 19:44 Cholesterol 221 mg/dL (50-199) H 04/02/21 19:44 LDL Cholesterol Direct 136 mg/dL (50-130) H 04/02/21 19:44 HDL Cholesterol 65 mg/dL (40-59) H 04/02/21 19:44 Cholesterol/HDL Ratio 3.40 % 04/02/21 19:44 TSH 2.080 mlU/mL (0.270-4.200) 04/04/21 10:27 Thomas/IV: Voiding Method Urinal Active Medications - Current Medications Current Medications: Generic Name Dose Route Start Last Admin Trade Name Freq PRN Reason Stop Dose Admin Acetaminophen 650 mg 04/02/21 22:17 Acetaminophen 325 Mg Tab PO Q6H PRN Pain, Mild (1-3) Amiodarone HCl 200 mg 04/03/21 15:00 04/06/21 12:39 Amiodarone 200 Mg Tab PO 200 mg QDAY NANO Administration Apixaban 5 mg 04/03/21 22:00 04/06/21 21:41 Apixaban 5 Mg Tab PO 5 mg Q12HR NANO Administration Protocol Atorvastatin Calcium 40 mg 04/03/21 22:00 04/06/21 21:41 Atorvastatin 40 Mg Tab PO 40 mg QHS NANO Administration Benzocaine 3 spray 04/07/21 12:00 04/07/21 13:06 Benzocaine 20% Top [place] 0.5 Ml Unit Dose MM 04/07/21 23:59 1 spray PREOP NR Administration Carvedilol 3.125 mg 04/06/21 22:00 04/06/21 21:41 Carvedilol 3.125 Mg Tab PO 3.125 mg BID NANO Administration Hydrophilic Ointment 1 applic 04/06/21 12:00 Lip Therapy Vaseline TP DIRECT PRN Dry Lips Sodium Chloride 1,000 mls @ 42 mls/hr 04/07/21 11:47 Nacl 0.9% 1000 Ml IV 04/08/21 11:35 ONCE ONE Lisinopril 2.5 mg 04/06/21 11:00 04/06/21 12:33 Lisinopril 5 Mg Tab PO 2.5 mg QDAY NANO Administration Magnesium Hydroxide 30 ml 04/02/21 22:17 Magnesium Hydroxide (Mom) Oral Liqd Udc PO Q4H PRN Constipation Morphine Sulfate 2 mg 04/02/21 22:17 Morphine 2 Mg/1 Ml Inj IV Q5MIN PRN Chest Pain unrelieved by NTG Nitroglycerin 0.4 mg 04/02/21 22:17 Nitroglycerin 0.4 Mg Tab Subl SL .Q5MIN PRN Chest Pain Ondansetron HCl 4 mg 04/02/21 22:17 Ondansetron 4 Mg/2 Ml Inj IV Q8H PRN Nausea And Vomiting Sodium Chloride 10 ml 04/03/21 10:00 04/06/21 21:41 Sodium Chloride 0.9% 10 Ml Flush Syringe IV 10 ml BID NANO Administration Sodium Chloride 10 ml 04/02/21 22:17 Sodium Chloride 0.9% 10 Ml Flush Syringe IV PRN PRN LINE FLUSH Spironolactone 25 mg 04/06/21 11:00 04/06/21 12:36 Spironolactone 25 Mg Tab PO 25 mg QDAY NANO Administration Tramadol HCl 50 mg 04/02/21 22:17 Tramadol 50 Mg Tab PO Q6H PRN Pain, Moderate (4-6)
[2021-04-07] MEDS: carvediloL 3.125 MG TAB PO SCH ×2 (15:41→22:35)
[2021-04-07] MEDS: AMIODARONE 200 MG TAB PO SCH (15:41)
[2021-04-07] MEDS: APIXABAN 5 MG TAB PO SCH ×2 (15:41→21:06)
--- NOTE | 2021-04-07 16:49 | Post Anesthesia Evaluation ---
- Post Anesthesia Evaluation Patient Participated: Yes Airway Patent: Yes Stable Respiratory Function: Yes Nausea/Vomiting: No Temp > 96.8F: Yes Pain Manageable: Yes Adequeate Hydration: Yes Anesthesia Complications: No Block Receding Appropriately: Not Applicable Patient on Ventilator: No
[2021-04-08 05:48] LABS: Hematocrit 44.4 % (35.5-45.6); Hemoglobin 14.9 gm/dl (11.8-15.2); Mean Corpuscular HGB Conc 34 % (32-34); Mean Corpuscular Volume 95 fl (84-94); Platelet Count 251 K/mm3 (140-440); Red Blood Count 4.69 M/mm3 (3.65-5.03); Red Cell Distribution Width 14.6 % (13.2-15.2)
[2021-04-08 05:53] LABS: BUN/Creatinine Ratio 17; Blood Urea Nitrogen 17 mg/dL (9-20); Calcium 8.8 mg/dL (8.4-10.2); Hemolysis Index 7
[2021-04-08 08:28] VITALS: BP 103/72
[2021-04-08] MEDS: AMIODARONE 200 MG TAB PO SCH (09:33)
[2021-04-08] MEDS: carvediloL 3.125 MG TAB PO SCH (09:33)
[2021-04-08] MEDS: APIXABAN 5 MG TAB PO SCH (09:33)
[2021-04-08] MEDS: SPIRONOLACTONE 25 MG TAB PO SCH (09:33)
[2021-04-08] MEDS: LISINOPRIL 5 MG TAB PO SCH (09:34)
--- NOTE | 2021-04-08 10:17 | Progress Note ---
Assessment and Plan - Patient Problems (1) Atrial fibrillation/flutter Current Visit: Yes Status: Acute Plan to address problem: normal TSH at 2.3. no evidence of PE by CTA of chest. s/p VICKI guided cardioversion 04/07/21. on eliquis, amiodarone, and coreg Stable for discharge home today with outpatient cardiac follow up in 5-7 days. (2) Dilated cardiomyopathy Current Visit: Yes Status: Acute Plan to address problem: Dilated cardiomyopathy, uncertain chronicity LVEF 25-30% by echo this admission Continue medical therapy for dilated cardiomyopathy. As an outpatient, will consider non-invasive ischemic evaluation with a stress thallium test. Subjective Date of service: 04/08/21 Principal diagnosis: Atrial Fib/Flutter Interval history: Patient is 1 day post VICKI guided cardioversion. Currently, he is sinus rhythm on telemetry. Objective Vital Signs Temp Pulse Pulse Pulse Resp Resp Resp 04/08/21 08:27 98.1 F 75 20 04/08/21 07:47 84 04/08/21 03:34 97.8 F 84 18 04/08/21 00:00 69 04/07/21 23:06 98.8 F 84 16 04/07/21 22:35 90 04/07/21 21:11 20 04/07/21 20:00 20 04/07/21 19:27 97.6 F 90 16 04/07/21 15:59 98.9 F 94 H 20 04/07/21 14:00 90 19 04/07/21 13:53 86 20 04/07/21 13:42 87 19 04/07/21 13:30 81 23 04/07/21 13:15 80 19 04/07/21 12:37 68 04/07/21 11:55 98.4 F 82 18 Resp BP BP BP Pulse Ox Pulse Ox Pulse Ox 04/08/21 08:27 103/72 96 04/08/21 07:47 04/08/21 03:34 99/65 96 04/08/21 00:00 04/07/21 23:06 100/72 97 04/07/21 22:35 106/79 04/07/21 21:11 04/07/21 20:00 04/07/21 19:27 106/79 94 04/07/21 15:59 105/74 98 04/07/21 14:00 122/77 100 07/13/21 13:53 123/89 100 04/07/21 13:42 113/69 98 04/07/21 13:30 78/50 95 04/07/21 13:15 124/86 96 04/07/21 12:37 19 124/86 100 04/07/21 11:55 104/79 98 - Physical Examination General: Appears Well HEENT: Positive: PERRL Neck: Positive: trachea midline. Negative: JVD/HJR Neuro: Positive: Grossly Intact Abdomen: Positive: Unremarkable, Active Bowel Sounds Skin: Positive: Clear Extremities: Absent: edema - Labs and Meds CBC 04/08/21 Range/Units 05:18 WBC 6.2 (4.5-11.0) K/mm3 RBC 4.69 (3.65-5.03) M/mm3 Hgb 14.9 (11.8-15.2) gm/dl Hct 44.4 (35.5-45.6) % Plt Count 251 (140-440) K/mm3 Comprehensive Metabolic Panel 04/08/21 Range/Units 05:18 Sodium 136 L (137-145) mmol/L Potassium 4.5 (3.6-5.0) mmol/L Chloride 102.0 (98-107) mmol/L Carbon Dioxide 25 (22-30) mmol/L BUN 17 (9-20) mg/dL Creatinine 1.0 (0.8-1.3) mg/dL Glucose 102 H (75-100) mg/dL Calcium 8.8 (8.4-10.2) mg/dL
--- NOTE | 2021-04-08 14:47 | Discharge Summary ---
Providers - Providers Date of Admission: 04/02/21 22:03 Attending physician: SHAUN BARNES MD 04/02/21 Consult to Cardiac Rehabilitation [CONS] Routine Reason For Exam: Phase I 04/02/21 22:20 Consult to Cardiology [CONS] Routine Consulting Provider: LEORA FARR Reason For Exam: AFIB, CHF- NEW ONSET Primary care physician: ELVIN LORD MD Hospitalization Condition: Stable Hospital course: 61-year-old -[place] male with significant past medical history of hypertension presents to the emergency room today complaining of palpitation and shortness of breath which has been ongoing for the past few days. Patient was diagnosed with new onset atrial fibrillation/flutter. Cardiology consulted, medical management and cardioversion pending New onset atrial fibrillation. Patient started on amiodarone and carvedilol Currently on Eliquis VICKI cardioversion pending Cardiology following NSTEMI type II Secondary to atrial fibrillation Hypertension Lisinopril Pulmonary edema Resolved History of gout Patient is currently not on any allopurinol Chronic back pain Tramadol CODE STATUS: Full DVT prophylaxis: Eliquis Disposition: Cardioversion today, anticipate discharge in the next 24 hours. History Interval history: 04/03/2021. Echocardiogram revealed left ventricle moderately dilated and systolic function severely decreased. Mild concentric left ventricular hypertrophy with EF of 25 to 30%. Etiology of pulmonary edema may be related to atrial fibrillation. Ischemic evaluation with stress test per cardiology. Continue to monitor cardiac isoenzymes and follow-up serial EKG. TSH within normal limits and CTA negative for PE. 04/04/2021. Patient's heart rate remains controlled on diltiazem and amiodarone. However, patient remains in a flutter. Cardiology with possible plans of VICKI guided cardioversion. Continue Eliquis 5 mg twice daily for anticoagulation. 04/05/2021. Cardiology plans for VICKI cardioversion tomorrow. TSH within normal limits. Continue diltiazem, amiodarone and Eliquis. 04/06/2021. Continue amiodarone and Eliquis per cardiology recommendations. Cardiology also added Coreg 3.125 mg p.o. twice daily, 25 mg spironolactone daily and lisinopril 2.5 mg daily. VICKI could not be completed today and is planned for tomorrow. 04/07/2021: Patient to have VICKI cardioversion today. Patient states that he does not have any shortness of breath or chest pain. #[id number]: Patient had VICKI conversion yesterday, no complications, spoke with cardiology, patient can be discharged with follow-up. Disposition: DC-01 TO HOME OR SELFCARE Final Discharge Diagnosis (Prints w/discharge instructions): New onset atrial fibrillation. Atrial flutter. NSTEMI type II. Hypertension. Pulmonary edema. History of gout. Chronic back pain Time spent for discharge: 35 minutes Core Measure Documentation - Palliative Care Palliative Care/ Comfort Measures: Not Applicable - Core Measures Any of the following diagnoses?: none Exam - Physical Exam Narrative exam: General appearance: no acute distress, well-nourished EENT: PERRL, EOM intact, hearing intact, clear oral mucosa Neck: Present: supple, normal ROM Respiratory: bilateral CTA, negative: rales, rhonchi, wheezing Cardiovascular: Irregular rate/rhythm, Normal S1 & S2. No gallop, rub Extremities: no ischemia, No edema, normal temperature, normal color, Full ROM Abdominal: soft, no tenderness, non-distended, normal bowel sounds Integumentary: Present: clear, warm, dry no wounds, no erythema noted Psychiatric: appropriate mood/affect, intact judgment & insight Neurologic: CNII-XII intact, moves all extremities, no sensory or motor abnormalities - Constitutional Vitals: Temp Pulse Resp BP Pulse Ox 98.1 F 75 20 103/72 96 04/08/21 08:27 04/08/21 08:27 04/08/21 08:27 04/08/21 08:27 04/08/21 08:27 Plan Activity: no restrictions Diet: low salt Follow up with: PRIMARY CARE, [Primary Care Provider] - 7 Days Prescriptions: AtorvaSTATin [Lipitor] 40 mg PO QHS #90 tab Spironolactone [Aldactone] 25 mg PO QDAY #60 tablet Amiodarone [Cordarone 200 MG TAB] 200 mg PO DAILY #90 tablet carvediloL [Coreg] 3.125 mg PO BID #60 tablet Apixaban [Eliquis] 5 mg PO BID #60 tablet lisinopriL [Zestril TAB] 2.5 mg PO QDAY #60 tablet
--- NOTE | 2021-04-09 10:42 | Electrocardiograph Report ---
[facility] Test Date: 2021-04-08 Test Time: 10:50:02 Pat Name: SAM REDMAN Department: Room: A487 1 Gender: M [employer] Sticker: ERWIN : 1960 Requested By: SHAUN BARNES Order Number: [id number] Reading MD: Pola Jarvis Measurements Intervals [place] Rate: 73 P: 28 CO: 204 QRS: -29 QRSD: 102 T: 31 QT: 384 QTc: 425 Interpretive Statements Sinus rhythm Probable left ventricular hypertrophy Compared to ECG 04/03/2021 12:10:28 Atrial flutter no longer present AV block, advanced (high-grade) no longer present Prolonged QT interval no longer present Electronically Signed On 04-09-2021 10:41:47 EDT by Pola Jarvis
== END 2021-04-08 12:40 | disposition home or self-care (01) | DRG 280 ==
LOC: ED 18:24 → OBSVTOIN 22:03 → 4A 22:03
PROVIDERS: ADMIT Internal Medicine Geriatric Medicine; ATTEND Family Medicine
PROC: 5A2204Z Restoration of Cardiac Rhythm, Single (ICD-10-PCS; principal; 2021-04-07)
DX: I48.92 Unspecified atrial flutter (principal); I21.A1 Myocardial infarction type 2; I50.43 Acute on chronic combined systolic (congestive) and diastolic (congestive) heart failure; J81.1 Chronic pulmonary edema; I11.0 Hypertensive heart disease with heart failure; I48.91 Unspecified atrial fibrillation; G89.29 Other chronic pain; M10.9 Gout, unspecified; M54.9 Dorsalgia, unspecified; I42.0 Dilated cardiomyopathy; F17.200 Nicotine dependence, unspecified, uncomplicated; I44.30 Unspecified atrioventricular block
CPT/HCPCS: 36415; 71045; 71275; 80048; 80061; 82565; 83735; 83880; 84443; 84484; 85014; 85018; 85025; 85027; 85049; 85379; 85520; 85610; 85730; 93005; 93306; 93312; 93320; 93325; 96374; G0378; A9270-GY; J0282; J1644; J1940; J2270; J2704; J7030; Q9967